=== PATIENT | male | born 1970 | race Caucasian/White ===

== ENCOUNTER 2024-01-16 21:01 | Inpatient (IN) | payer MEDICAID, SELFPAY ==
[2024-01-16] VITALS (8 sets, daily range): BP systolic 103–161; BP diastolic 59–104; PULSE 69–83; RESP 13–28; TEMP 36.4–37.1; O2SAT 93–100; BMI 23.0
--- NOTE | 2024-01-16 | IR_ITS ---
APPROVED REPORT Patient Location: Emergent Export Documents Clerk: TERI Madison RT (R) PROCEDURES Left heart catheterization Left ventriculogram Selective coronary angiogram Drug-eluting stent deployment to the mid circumflex artery INDICATION Acute inferolateral ST elevation myocardial infarction, Coronary artery disease Informed consent was obtained prior to the procedure. COMPLICATIONS None Estimated Blood Loss: Less than 10 mls TECHNIQUE One percent lidocaine used to anesthetize the right anterior aspect of the wrist. The right radial artery was accessed via the Seldinger technique. A 6 [place] Islander sheath was placed in the right radial artery. 2.5 mg of Verapamil, 800 mcg of nitroglycerin, 1mg Lidocaine and 5000 U Heparin were given through the arterial sheath. The papa catheter was also used to perform left heart catheterization, left ventriculogram and selective coronary angiogram. At the end of the diagnostic angiogram the guide catheter was left in the left main artery and a Choice PT extra-support wire was placed in the circumflex artery. A 3 mm x 22 mm [place] frontier stent was deployed at 14 bonilla reducing the critical stenosis to 0%. SIGIFREDO II flow was present at the beginning of the procedure with SIGIFREDO-3 flow at the end the procedure. Within the procedure the apparatus was removed the sheath was removed and hemostasis was achieved using TR banding patient was transferred to the postop putting in stable condition ANGIOGRAPHIC RESULTS The left main artery Normal The left anterior descending artery Proximally normal with mid vessel hazy tandem 30 to 40% stenoses The circumflex artery Nondominant and has a mid vessel concentric greater than 90% stenosis supplying 2 distal moderate-sized obtuse marginal arteries. The right coronary artery Is a dominant vessel and has proximal 30% with a mid vessel concentric 40% with additional 30% distal stenoses The SUAREZ ventriculogram reveals Normal 60% The left ventricular end-diastolic pressure [address] elevation myocardial infarction involving the circumflex artery Successful stent to the mid circumflex artery critical disease reduced to 0% with 1 drug-eluting stent Persistent moderate mid LAD disease as well as moderate disease in the proximal and mid dominant right coronary Normal ejection fraction Mildly elevated LVEDP PLAN 1. Brilinta 90 twice daily plus aspirin 81 mg daily 2. LDL of 55 to be achieved with high intensity statin 3. Avoidance of tobacco products 4. Echocardiogram in the morning 5. Recommend 48 hours of telemetry monitoring 6. Cardiac rehabilitation 7. MARLENE inhibitor's and beta-blockers once hemodynamically tolerable 8. Aggressive risk factor modification Electronically signed by : Kirby Freitas MD 01/16/2024 22:56:55
--- NOTE | 2024-01-16 21:00 | ECG_ITS ---
APPROVED REPORT Exam: Resting ECG HR:74 bpm ECG Measurements Heart Rate 74 AXES MO 152 P 71 QRSd 101 QRS 93 QT 369 T 43 QTc 396 Conclusion SINUS RHYTHM POSSIBLE LEFT ATRIAL ENLARGEMENT [-0.1mV P-WAVE IN V1/V2] BORDERLINE RIGHT AXIS DEVIATION [QRS AXIS > 90] NONSPECIFIC T-WAVE ABNORMALITY BORDERLINE ECG UNCONFIRMED REPORT Electronically signed by : Lit Ahuja MD 01/17/2024 20:00:37
--- NOTE | 2024-01-16 21:07 | XR_ITS ---
PROCEDURE INFORMATION: Exam: XR Chest Exam date and time: 01/16/2024 9:52 PM Age: 53 years old Clinical indication: Pain; Chest pressure; Additional info: R cp. Stemi alert TECHNIQUE: Imaging protocol: Radiologic exam of the chest. Views: 1 view. COMPARISON: No relevant prior studies available. FINDINGS: Lungs: Scattered pulmonary granulomas. Pleural spaces: Unremarkable. No pleural effusion. No pneumothorax. Heart/Mediastinum: Unremarkable. No cardiomegaly. Bones/joints: Unremarkable. IMPRESSION: No acute findings.
--- NOTE | 2024-01-16 21:09 | HMH.EDCP ---
Discharge Plan Disposition Patient Disposition: Admitted Referrals Follow up/Referrals: Na Bryan MD [Staff Physician] - See instructions Clinical Impressions Clinical Impression: Chest pain, ST elevation myocardial infarction (STEMI) Discharge ED Provider: Jv Sears <DIVINE Byers - Last Filed: 01/16/24 21:12> General Chief Complaint: Chest Pain Stated Complaint: Chest Pain Time Seen by Provider: 01/16/24 21:06 Related Data Allergies Allergy/AdvReac Type Severity Reaction Status Date / Time No Known Allergies Allergy Verified 01/16/24 21:16 <Jv Sears MD - Last Filed: 01/16/24 22:07> History of Present Illness HPI narrative: Patient is a 53-year-old male with no pertinent past medical history, no PCP who presents emergency department for evaluation of chest pain. Patient was hiking earlier today, less than 1 mile. He has since developed a deep severe left-sided chest pain that is radiating through to his back with sweating. No other acute complaints at this time. [facility] <DIVINE Byers - Last Filed: 01/16/24 21:12> [facility] Disclaimer: The information contained in this section may have been updated after the patient was seen, as this information can be updated by other users. Social History Smoking Status: Current every day smoker alcohol intake: never current occupational status: other Travel in the last 8 weeks: None <Jv Sears MD - Last Filed: 01/16/24 22:07> ROS Obtained: Yes Systems reviewed as appropriate & no additional complaints except as documented <Jv Sears MD - Last Filed: 01/16/24 22:07> General General appearance: alert and in no apparent distress Head Head exam: atraumatic and normocephalic Eye Eye exam: Present PERRL ENT ENT exam: Present mucous membranes moist Neck Neck exam: Present normal inspection Chest Chest inspection: Present normal inspection and symmetric chest wall rise Respiratory Respiratory exam: Present normal lung sounds bilaterally; Absent respiratory distress Cardiovascular Cardiovascular exam: Present regular rate and normal rhythm Abdominal Exam Abdominal exam: Present soft; Absent tenderness Extremities Exam Extremities exam: Present normal inspection and other (2+ left radial pulse) Neurological Exam Neurological exam: Present alert Psychiatric Psychiatric exam: Present normal affect Skin Skin exam: Present warm and dry <Jv Sears MD - Last Filed: 01/16/24 22:07> HEART Score HEART Score assessment performed?: Yes History (anamnesis): Highly suspicious ECG: Significant ST-deviation Age: 45-65 years Risk factors: 1-2 risk factors Troponin: </= normal limit HEART Score: 6 <Jv Sears MD - Last Filed: 01/16/24 22:07> Critical Care Time Critical Care Time: Yes Attestation: On 01/16/24, the high probability of a clinically significant, sudden or life threatening deterioration of the following system(s) required my full and direct attention, intervention and personal management. The time I documented below is in addition to time spent performing reported procedures but includes the following listed in this critical care notation. Total Time Total Critical Care Time: 30 Medical Decision Making <DIVINE Byers - Last Filed: 01/16/24 21:12> Vital Signs Vital Signs: 01/16/24 21:02 01/16/24 21:02 01/16/24 21:24 Temperature 98.8 F Temperature Source Oral Pulse Rate 74 71 Pulse Rate [Left] 74 Respiratory Rate 28 H 16 Blood Pressure 161/99 H Blood Pressure [Right Arm] 160/104 H Blood Pressure Mean [Right Arm] 122 02 Sat by Pulse Oximetry 100 98 Oxygen Delivery Method Room Air Room Air Lab Data Labs: Lab Results 01/16/24 21:12: WBC 9.4, RBC 5.25, Hgb 16.4, Hct 51.0, MCV 97.1 H, MCH 31.3 H, MCHC 32.2, RDW 13.7, Plt Count 298, MPV 8.0, Neut % (Auto) 62.1, Lymph % (Auto) 31.8, [place] % (Auto) 4.2, Eos % (Auto) 1.6, Baso % (Auto) 0.3, Neut # (Auto) 5.8, Lymph # (Auto) 3.0, [place] # (Auto) 0.4, Eos # (Auto) 0.2, Baso # (Auto) 0.0, Sodium 139, Potassium 3.5, Chloride 105, Carbon Dioxide 34 H, Anion Gap 3.5 L, BUN 9, Creatinine 1.10, Estimated Creat Clear 75, Estimated GFR 71, Est GFR ( Amer) 85, Glucose 105 H, Calcium 8.9, Total Bilirubin 0.3, AST 34, ALT 31, Alkaline Phosphatase 89, Troponin I < 0.01, Total Protein 7.6, Albumin 4.3, Globulin 3.3 H, Albumin/Globulin Ratio 1.3 01/16/24 21:12 01/16/24 21:12 Response Orders (Tests/Meds): ED MEDICATIONS Generic Name Dose Route Start Last Admin Trade Name Freq PRN Reason Stop Dose Admin Nitroglycerin 0.4 mg 01/16/24 21:44 01/16/24 21:45 Nitroglycerin 0.4mg Sl Tablet SL 02/15/24 21:43 0.4 mg Q5MINP PRN Administration Chest Pain Discontinued Medications Generic Name Dose Route Start Last Admin Trade Name Freq PRN Reason Stop Dose Admin Aspirin 324 mg 01/16/24 21:23 01/16/24 21:36 Aspirin 81mg Chewable Tablet PO 01/16/24 21:24 324 mg ONCE ONE Administration Morphine Sulfate 4 mg 01/16/24 21:14 01/16/24 21:17 Morphine 4mg/Ml Syringe IV 01/16/24 21:15 4 mg ONCE ONE Administration Nitroglycerin 0.4 mg 01/16/24 21:14 01/16/24 21:17 Nitroglycerin 0.4mg Sl Tablet SL 01/16/24 21:15 0.4 mg ONCE ONE Administration Ondansetron HCl 4 mg 01/16/24 21:14 01/16/24 21:17 Ondansetron 4mg/2ml Vial IV 01/16/24 21:15 4 mg ONCE ONE Administration ORDERS Category Date Time Status CT angio chest - dissection Stat Cat Scan 01/16/24 21:07 Stop Req CXR --portable [XR chest portable] Stat Exams 01/16/24 21:07 Taken CBC w/Auto Diff [Complete Blood Count Auto Diff] Stat Lab 01/16/24 21:12 Completed CMP [Comprehensive Metabolic Panel] Stat Lab 01/16/24 21:12 Completed Trop I [Troponin I] Stat Lab 01/16/24 21:12 Completed Troponin I Q3H Lab 01/17/24 00:15 Ordered Troponin I Q3H Lab 01/17/24 03:15 Ordered <Jv Sears MD - Last Filed: 01/16/24 22:07> Dylan Inquiry Pt receiving controlled substance: No Vital Signs Vital Signs: 01/16/24 21:02 01/16/24 21:02 01/16/24 21:24 Temperature 98.8 F Temperature Source Oral Pulse Rate 74 71 Pulse Rate [Left] 74 Respiratory Rate 28 H 16 Blood Pressure 161/99 H Blood Pressure [Right Arm] 160/104 H Blood Pressure Mean [Right Arm] 122 02 Sat by Pulse Oximetry 100 98 Oxygen Delivery Method Room Air Room Air Lab Data Labs: Lab Results 01/16/24 21:12: WBC 9.4, RBC 5.25, Hgb 16.4, Hct 51.0, MCV 97.1 H, MCH 31.3 H, MCHC 32.2, RDW 13.7, Plt Count 298, MPV 8.0, Neut % (Auto) 62.1, Lymph % (Auto) 31.8, [place] % (Auto) 4.2, Eos % (Auto) 1.6, Baso % (Auto) 0.3, Neut # (Auto) 5.8, Lymph # (Auto) 3.0, [place] # (Auto) 0.4, Eos # (Auto) 0.2, Baso # (Auto) 0.0, Sodium 139, Potassium 3.5, Chloride 105, Carbon Dioxide 34 H, Anion Gap 3.5 L, BUN 9, Creatinine 1.10, Estimated Creat Clear 75, Estimated GFR 71, Est GFR ( Amer) 85, Glucose 105 H, Calcium 8.9, Total Bilirubin 0.3, AST 34, ALT 31, Alkaline Phosphatase 89, Troponin I < 0.01, Total Protein 7.6, Albumin 4.3, Globulin 3.3 H, Albumin/Globulin Ratio 1.3 Response Orders (Tests/Meds): ED MEDICATIONS Generic Name Dose Route Start Last Admin Trade Name Freq PRN Reason Stop Dose Admin Nitroglycerin 0.4 mg 01/16/24 21:44 01/16/24 21:45 Nitroglycerin 0.4mg Sl Tablet SL 02/15/24 21:43 0.4 mg Q5MINP PRN Administration Chest Pain Discontinued Medications Generic Name Dose Route Start Last Admin Trade Name Freq PRN Reason Stop Dose Admin Aspirin 324 mg 01/16/24 21:23 01/16/24 21:36 Aspirin 81mg Chewable Tablet PO 01/16/24 21:24 324 mg ONCE ONE Administration Morphine Sulfate 4 mg 01/16/24 21:14 01/16/24 21:17 Morphine 4mg/Ml Syringe IV 01/16/24 21:15 4 mg ONCE ONE Administration Nitroglycerin 0.4 mg 01/16/24 21:14 01/16/24 21:17 Nitroglycerin 0.4mg Sl Tablet SL 01/16/24 21:15 0.4 mg ONCE ONE Administration Ondansetron HCl 4 mg 01/16/24 21:14 01/16/24 21:17 Ondansetron 4mg/2ml Vial IV 01/16/24 21:15 4 mg ONCE ONE Administration ORDERS Category Date Time Status CT angio chest - dissection Stat Cat Scan 01/16/24 21:07 Stop Req CXR --portable [XR chest portable] Stat Exams 01/16/24 21:07 Taken CBC w/Auto Diff [Complete Blood Count Auto Diff] Stat Lab 01/16/24 21:12 Completed CMP [Comprehensive Metabolic Panel] Stat Lab 01/16/24 21:12 Completed Trop I [Troponin I] Stat Lab 01/16/24 21:12 Completed Troponin I Q3H Lab 01/17/24 00:15 Ordered Troponin I Q3H Lab 01/17/24 03:15 Ordered ECG Data Tracing #1: ECG Narrative: Independently interpreted by me, rate of 74, rhythm is regular, no ST elevation in anatomical contiguous leads, nonspecific changes in the inferior leads. QTc 396. Tracing #2: ECG Narrative: Independently interpreted by me, rate of 75, rhythm is regular, ST elevation in the inferior leads with dynamic T wave inversions in V3 and V4 concerning for inferior SD. QTc 397. MDM Narrative Medical Decision Narrative: In summary patient is a 53-year-old male past medical history described above presents emergency department for evaluation of chest pain. Patient is hemodynamically stable nontoxic-appearing upon arrival, afebrile. Differential diagnosis includes ACS, aortic dissection, pulmonary embolism, among others. Workup will be conducted with hematologic labs, chest x-ray, EKG, troponin, CTA chest. Initial interventions include morphine, nitroglycerin, aspirin. Initial workup reviewed by me, hematologic labs have no leukocytosis, no anemia, no GASTON or critical electrolyte abnormalities. Patient became diaphoretic, crushing left-sided chest pain, repeat EKG shows dynamic ST elevation inferior leads with T wave inversions in the lateral leads concerning for evolving myocardial infarction. The case was immediately discussed with Dr. Freitas who agrees and recommends emergent heart catheterization. Nitroglycerin administered given the patient is not hypotensive although inferior ischemia. CTA will be deferred and patient will be transported to [facility] for heart catheterization at this time.
[2024-01-16] MEDS: MORPHINE 4MG/ML SYRINGE 4 MG IV (21:17)
[2024-01-16] MEDS: ONDANSETRON 4MG/2ML VIAL 4 MG IV (21:17)
[2024-01-16] MEDS: NITROGLYCERIN 0.4MG SL TABLET 0.400000000000000022 MG SL ×2 (21:17→21:45)
[2024-01-16 21:26] LABS: Basophils % 0.3 % (0.1-2.0); Eosinophils # 0.2 K/mm3 (0.0-0.4); Eosinophils % 1.6 % (0.1-12.0); Hemoglobin 16.4 g/dL (14.1-18.0); Lymphocytes % 31.8 % (10-50); Mean Corpuscular HGB Conc 32.2 g/dL (31.8-35.4); Mean Corpuscular Hemoglobin 31.3 pg (27.0-31.2); Mean Corpuscular Volume 97.1 fl (80-94); Monocytes # 0.4 K/mm3 (0.1-1.0); Monocytes % 4.2 % (1.7-9.3); Neutrophils # 5.8 K/mm3 (1.8-7.8); Neutrophils % 62.1 % (37.0-80.0); Platelet Count 298 K/mm3 (142-424); Red Blood Count 5.25 M/mm3 (4.60-6.20); Red Cell Distribution Width 13.7 % (11.5-17.5); White Blood Count 9.4 K/mm3 (4.8-10.8)
[2024-01-16 21:35] LABS: Chloride 105 mmol/L (98-107); Potassium 3.5 mmoL/L (3.5-5.1); Sodium 139 mmol/L (136-145)
[2024-01-16] MEDS: ASPIRIN 81MG CHEWABLE TABLET 324 MG PO (21:36)
[2024-01-16 21:38] LABS: Alanine Aminotransferase 31 U/L (12-78); Albumin Level 4.3 g/dl (3.5-5.0); Albumin/Globulin Ratio 1.3 (1.1-1.8); Alkaline Phosphatase 89 U/L (38-126); Anion Gap 3.5 mEq/L (5-15); Aspartate Amino Transferase 34 U/L (17-59); Bilirubin,Total 0.3 mg/dl (0.2-1.3); Blood Urea Nitrogen 9 mg/dl (9-20); Carbon Dioxide 34 mmol/L (22.0-30.0); Creatinine Clearance Estimated 75 mL/min (50-200); Estimated Glomerular Filt Rate 71 ml/min (>60); GFR (African American) 85 ML/MIN (>60); Globulin 3.3 g/dL (1.3-3.2); Total Protein,Serum 7.6 g/dl (6.3-8.2)
[2024-01-16 21:39] LABS: Calcium 8.9 mg/dl (8.4-10.2); Glucose 105 mg/dl (74-100)
--- NOTE | 2024-01-16 21:45 | ECG_ITS ---
APPROVED REPORT Exam: Resting ECG HR:75 bpm ECG Measurements Heart Rate 75 AXES MO 147 P 63 QRSd 95 QRS 97 QT 368 T 71 QTc 397 Conclusion SINUS RHYTHM WITH MARKED SINUS ARRHYTHMIA BORDERLINE RIGHT AXIS DEVIATION [QRS AXIS > 90] NONSPECIFIC T-WAVE ABNORMALITY BORDERLINE ECG UNCONFIRMED REPORT Electronically signed by : Lit Ahuja MD 01/17/2024 20:00:28
--- NOTE | 2024-01-16 21:47 | PC.NURSE ---
patient had a new onset of pain so a repeat EKG was obtained and Dr. Freitas was paged to extension [phone].
--- NOTE | 2024-01-16 21:58 | PC.NURSE ---
STEMI alert called @2150, and cath team called, per [facility]. Pt has bilat 18G IVs, on zolle monitor, shaved on wrists and groins, and put in a pt gown. IVF hanging at bedside.
--- NOTE | 2024-01-16 21:59 | PC.NURSE ---
Zoll has been placed on patient, second IV access obtained
[2024-01-16 22:02] LABS: Troponin I < 0.01 ng/ml (0.00-0.034)
--- NOTE | 2024-01-16 22:03 | PC.NURSE ---
Patient has been shaved in appropriate areas for laboratory inspector.
[2024-01-16] MEDS: HEPARIN SODIUM 5,000 UNIT/ML VIAL 6700 UNIT IV (22:15)
[2024-01-16] MEDS: TICAGRELOR 90MG TABLET 180 MG PO (22:15)
--- NOTE | 2024-01-16 22:18 | PC.NURSE ---
contacted dr richards via stemi phone to confirm medications. verbal order received for brillinta 180 mg and heparin bolus 100units/kg. Informed primary nurse and ER MD and added order to chart.
--- NOTE | 2024-01-16 22:24 | PC.NURSE ---
Cricket from [facility] called and confirmed patients name and , also stated that they needed 5 mins then he could be transported to the [facility]
[2024-01-16] MEDS: 0.9 % SODIUM CHLORIDE 500 ML 25 ML IV (22:56)
[2024-01-16] MEDS: LIDOCAINE 1% 10ML MDV 20 ML IJ (22:56)
[2024-01-16] MEDS: HEPARIN 1,000 UNITS/500ML NS (CATH LAB) 3000 UNIT IV (22:56)
[2024-01-16] MEDS: HEPARIN 1,000 UNITS/ML 10ML VIAL (CATH LAB) 10000 UNIT IV (22:56)
[2024-01-16] MEDS: NITROGLYCERIN 800MCG/8ML SYR (CATH LAB) 800 MCG IA (22:57)
[2024-01-16] MEDS: diphenhydrAMINE 50MG/ML VIAL 50 MG IV (22:57)
[2024-01-16] MEDS: FENTANYL 100MCG/2ML VIAL 50 MCG IV (22:58)
[2024-01-16] MEDS: MIDAZOLAM HCL 1MG/1ML 5ML VIAL 1 MG IV (22:58)
[2024-01-16] MEDS: IOPAMIDOL-370 (76%);100ML BOTTLE 90 ML IV (23:16)
--- NOTE | 2024-01-16 23:16 | EXP.HP ---
History of Present Illness *Admission Date: 01/16/24 *Reason for visit:: CP *History of present illness: This is a 53-year-old male with apparently no past medical history, no PCP, heavy smoker 1-1/2 pack a day who presented to ED for evaluation of chest pain. Patient was hiking earlier today, less than 1 mile. He has since developed a deep severe left-sided chest pain that is radiating through to his back with sweating. STEMI alert was called. patient emergent taken to quality control lab technician. Patient seen and evaluated after procedure. Tolerated well no acute complications. No other acute complaints at this time. Admitted for management. [facility] Disclaimer: The information contained in this section may have been updated after the patient was seen, as this information can be updated by other users. Surgical History (Updated 01/17/24 @ 05:36 by Chapin Alegre APRN) History of appendectomy Family History (Updated 01/17/24 @ 00:11 by Sigrid Bryan RN) Family history of heart disease Family history of diabetes mellitus (DM) Family history of liver disease Social History (Updated 01/17/24 @ 00:08 by Sigrid Bryan RN) Smoking Status: Current every day smoker alcohol intake: never current occupational status: other Travel in the last 8 weeks: None Review of Systems Review of Systems Review of systems:: pertinent systems reviewed and negative unless documented below Meds Home Medications and Allergies Home Medications Medication Instructions Recorded Confirmed Type No Known Home Medications 01/16/24 01/16/24 History New Prescriptions to Start Prescriptions: Allergies Allergy/AdvReac Type Severity Reaction Status Date / Time No Known Allergies Allergy Verified 01/16/24 21:16 Exam Data for Last 24 hours Vital signs and Labs for Last 24 Hours: Temp Pulse Resp BP Pulse Ox O2 Del Method 98.2 F 80 18 134/60 98 Room Air 01/16/24 22:53 01/16/24 22:53 01/16/24 22:53 01/16/24 22:53 01/16/24 21:24 01/16/24 21:24 Laboratory Results - last 24 hr 01/16/24 21:12: WBC 9.4, RBC 5.25, Hgb 16.4, Hct 51.0, MCV 97.1 H, MCH 31.3 H, MCHC 32.2, RDW 13.7, Plt Count 298, MPV 8.0, Neut % (Auto) 62.1, Lymph % (Auto) 31.8, [place] % (Auto) 4.2, Eos % (Auto) 1.6, Baso % (Auto) 0.3, Neut # (Auto) 5.8, Lymph # (Auto) 3.0, [place] # (Auto) 0.4, Eos # (Auto) 0.2, Baso # (Auto) 0.0, Sodium 139, Potassium 3.5, Chloride 105, Carbon Dioxide 34 H, Anion Gap 3.5 L, BUN 9, Creatinine 1.10, Estimated Creat Clear 75, Estimated GFR 71, Est GFR ( Amer) 85, Glucose 105 H, Calcium 8.9, Total Bilirubin 0.3, AST 34, ALT 31, Alkaline Phosphatase 89, Troponin I < 0.01, Total Protein 7.6, Albumin 4.3, Globulin 3.3 H, Albumin/Globulin Ratio 1.3 I & O for Last 24 hours: Intake & Output 01/13/24 01/14/24 01/15/24 01/16/24 23:59 23:59 23:59 23:59 Weight 66.678 kg Constitutional Constitutional: mild distress, cooperative and somnolent *Routine HEENT Exam Head: Present normocephalic and atraumatic Eye: Present EOMI, PERRL and normal accommodation ENT: Present mucous membranes moist *Routine Neck Exam Neck: Present supple, full ROM and trachea midline *Routine Respiratory Exam Respiratory: Present CTA bilaterally, normal respiratory effort and symmetric chest movement; Absent respiratory distress *Routine Cardiovascular Exam Cardiovascular: Present RRR, Normal S1 and Normal S2 *Routine Abdominal Exam Abdominal: Present soft and normoactive bowel sounds; Absent tenderness *Routine Rectal Exam Rectal:: deferred *Routine Genitalia Exam Genitalia:: deferred *Routine Extremities Exam Extremities: Present full ROM, pulses intact and vascular access (dry clean intact ); Absent cyanosis, clubbing or edema *Routine Skin Exam Skin: Present dry and warm; Absent cyanosis or rash *Routine Neurological Exam Neurological: Present alert, oriented X3, normal reflexes and normal speech Routine Psychiatric Exam Psychiatric: Present cooperative, good insight and good judgment H&P: Result Imaging and Cardiology EKG: Status: image reviewed by me and Preliminary report Chest x-ray: Status: image reviewed by me, Preliminary report and final report Assessment and Plan *Assessment and plan (1) Chest pain: Status: Acute Qualifiers: Chest pain type: chest pain due to myocardial ischemia Ischemic chest pain type: unspecified angina pectoris type Qualified Code(s): I25.9 - Chronic ischemic heart disease, unspecified Category: Medical Code(s): R07.9 - Chest pain, unspecified (2) ST elevation myocardial infarction (STEMI): Status: Acute Qualifiers: Involved coronary artery: left circumflex coronary artery Qualified Code(s): I21.21 - ST elevation (STEMI) myocardial infarction involving left circumflex coronary artery Category: Medical Code(s): I21.3 - ST elevation (STEMI) myocardial infarction of unspecified site (3) S/P coronary artery stent placement: Status: Acute Category: Surgical Code(s): Z95.5 - Presence of coronary angioplasty implant and graft (4) CAD (coronary artery disease): Status: Acute Qualifiers: Associated angina: unspecified whether angina present Coronary Disease-Associated Artery/Lesion type: [place] artery [place] vs. transplanted heart: [place] heart Qualified Code(s): I25.10 - Atherosclerotic heart disease of [place] coronary artery without angina pectoris Category: Medical Code(s): I25.10 - Atherosclerotic heart disease of [place] coronary artery without angina pectoris (5) Heavy smoker: Status: Acute Category: Social Hx Code(s): F17.200 - Nicotine dependence, unspecified, uncomplicated Plan 53-year-old male with apparently no past medical history, no PCP, heavy smoker 1-1/2 pack a day who presented to ED for evaluation of chest pain. Patient was hiking earlier today, less than 1 mile. He has since developed a deep severe left-sided chest pain that is radiating through to his back with sweating. EKG showed ST elevation. STEMI alert was called. taken to laboratory specialist. Successful stent to the mid circumflex artery critical disease reduced to 0% with 1 drug-eluting stent. See report for more details. Case discussed with ED and cardiology. Admitted post procedure. Plan as follow: -Chest pain secondary to STEMI due to complete occlusion to the mid circumflex artery S/p stent placement. mild CAD of other [place] coronary artery: Admit patient for continuous cardiac telemetry Cardiac consult monitor for CP. monitor for site bleeding, hematoma. pain management repeat lab in the morning Obtain lipid panel, A1c and Vit D to access and complete cardiac risk assessment. ECHO ordered started on statin, ASA and brillinta per cardiology Will introduce betablocker and MARLENE inhibitor heavy smoker: On nicotine patch. Aggressive lifestyles changes encouraged heparinized at laboratory specialist. On protonix. Full code Rounded on patient after nurse practitioner. Personally examined and interviewed patient. Agree with exam findings and care plan as documented.
[2024-01-16 23:17] LABS: CATHL Activated Clotting Time 212 SEC (74-125)
--- NOTE | 2024-01-16 23:38 | PC.NURSE ---
@ [phone] REPORT CALLED FROM INGREDIENT SPECIALIST; CELESTINO BENTLEY
--- NOTE | 2024-01-16 23:42 | PC.NURSE ---
pt arrived to floor at this time
[2024-01-17] VITALS (17 sets, daily range): BP systolic 107–155; BP diastolic 53–87; PULSE 51–71; RESP 10–24; TEMP 36.3–37.3; O2SAT 93–99; BMI 23.8
[2024-01-17 00:39] LABS: Basophils % 0.2 % (0.1-2.0); Eosinophils # 0.2 K/mm3 (0.0-0.4); Eosinophils % 1.5 % (0.1-12.0); Hematocrit 42.4 % (42.0-52.0); Hemoglobin 14.2 g/dL (14.1-18.0); Lymphocytes # 3.8 K/mm3 (0.7-4.5); Lymphocytes % 31.3 % (10-50); Mean Corpuscular HGB Conc 33.5 g/dL (31.8-35.4); Mean Corpuscular Hemoglobin 31.6 pg (27.0-31.2); Mean Corpuscular Volume 94.3 fl (80-94); Mean Platelet Volume 8.1 fl (7.4-10.4); Monocytes # 0.4 K/mm3 (0.1-1.0); Monocytes % 3.7 % (1.7-9.3); Neutrophils # 7.6 K/mm3 (1.8-7.8); Neutrophils % 63.3 % (37.0-80.0); Platelet Count 239 K/mm3 (142-424); Red Cell Distribution Width 13.6 % (11.5-17.5); White Blood Count 12.1 K/mm3 (4.8-10.8)
[2024-01-17 00:49] LABS: Anion Gap 6.9 mEq/L (5-15); Blood Urea Nitrogen 9 mg/dl (9-20); Calcium 8.2 mg/dl (8.4-10.2); Carbon Dioxide 30 mmol/L (22.0-30.0); Chloride 106 mmol/L (98-107); Creatinine Clearance Estimated 82 mL/min (50-200); Estimated Glomerular Filt Rate 79 ml/min (>60); GFR (African American) 95 ML/MIN (>60); Glucose 97 mg/dl (74-100); Potassium 3.9 mmoL/L (3.5-5.1); Sodium 139 mmol/L (136-145)
[2024-01-17 01:02] LABS: Troponin I 0.08 ng/ml (0.00-0.034)
[2024-01-17] MEDS: ACETAMINOPHEN 325MG TAB 650 MG PO ×2 (02:33→09:07)
[2024-01-17 03:47] LABS: Basophils % 0.4 % (0.1-2.0); Eosinophils # 0.2 K/mm3 (0.0-0.4); Eosinophils % 1.8 % (0.1-12.0); Hematocrit 45.9 % (42.0-52.0); Hemoglobin 14.9 g/dL (14.1-18.0); Lymphocytes # 4.2 K/mm3 (0.7-4.5); Lymphocytes % 37.4 % (10-50); Mean Corpuscular HGB Conc 32.4 g/dL (31.8-35.4); Mean Corpuscular Hemoglobin 31.3 pg (27.0-31.2); Mean Corpuscular Volume 96.6 fl (80-94); Mean Platelet Volume 7.7 fl (7.4-10.4); Monocytes # 0.5 K/mm3 (0.1-1.0); Monocytes % 4.2 % (1.7-9.3); Neutrophils # 6.4 K/mm3 (1.8-7.8); Neutrophils % 56.2 % (37.0-80.0); Platelet Count 246 K/mm3 (142-424); Red Blood Count 4.75 M/mm3 (4.60-6.20); Red Cell Distribution Width 13.8 % (11.5-17.5); White Blood Count 11.3 K/mm3 (4.8-10.8)
[2024-01-17 03:54] LABS: Chloride 107 mmol/L (98-107); Potassium 4.1 mmoL/L (3.5-5.1); Sodium 138 mmol/L (136-145)
[2024-01-17 03:57] LABS: Alanine Aminotransferase 28 U/L (12-78); Albumin Level 3.7 g/dl (3.5-5.0); Albumin/Globulin Ratio 1.4 (1.1-1.8); Alkaline Phosphatase 80 U/L (38-126); Anion Gap 4.1 mEq/L (5-15); Aspartate Amino Transferase 38 U/L (17-59); Bilirubin,Total 0.4 mg/dl (0.2-1.3); Blood Urea Nitrogen 8 mg/dl (9-20); Calcium 8.5 mg/dl (8.4-10.2); Carbon Dioxide 31 mmol/L (22.0-30.0); Creatinine Clearance Estimated 92 mL/min (50-200); Estimated Glomerular Filt Rate 89 ml/min (>60); GFR (African American) 108 ML/MIN (>60); Globulin 2.7 g/dL (1.3-3.2); Glucose 88 mg/dl (74-100); Total Protein,Serum 6.4 g/dl (6.3-8.2)
[2024-01-17 03:58] LABS: Chol/HDL Ratio 6.4 (1-3.5); Cholesterol 193 mg/dl (140-200); HDL Cholesterol 30 mg/dl (40-60); Magnesium 1.9 mg/dl (1.6-2.3); Triglycerides 159 mg/dl (30-150); VLDL Cholesterol 32 mg/dL (0-40)
[2024-01-17 04:10] LABS: Troponin I 0.13 ng/ml (0.00-0.034)
[2024-01-17 04:22] LABS: Hemoglobin A1C 5.3 % (4.0-6.0)
[2024-01-17 04:36] LABS: 25-OH Vitamin D, Total 17.5 ng/mL (30-100)
--- NOTE | 2024-01-17 05:14 | PC.NURSE ---
TR BAND 16ML @0200 -2ML (14) @0215 -2ML (12) @0230 -2ML (10) @0245 -2ML (8) @0300 -2ML (6) @0315 -2ML (4) @0330 -2ML (2) @0345 -2ML (0) TR BAND OFF @ 0345, TEGADERM AND 4X4 DRESSING APPLIED, PT EDUCATED ON HOW TO CARE FOR WRIST AND PT VERBALIZED UNDERSTANDING.
--- NOTE | 2024-01-17 07:46 | HMH.PHAINT1 ---
Pharmacy Intervention Comments: Verified patient is taking no medications at home by speaking to him at bedside.
--- NOTE | 2024-01-17 08:39 | CA_ITS ---
APPROVED REPORT EXAM: Comprehensive 2D, Doppler, and color-flow Echocardiogram Sex Crimes Detective: María Lehman CRT Ht: 5 ft 6 in Wt: 152lbs BSA: 1.78 BP: 129/78 mmHg Indications: Chest Pain, CAD, Hyperlipidemia, smoker, stemi, stent 01/17/24 2D Dimensions LA Volume 34.00 mL LA Volume Index 18.70 mL/m2 (M/F) 16-34 M-Mode Dimensions RVDd 2.38 cm (0.9-2.6) LA Diam 3.34 cm (1.9-4.0) LVDd 4.92 cm (3.5-5.7) LVDs 3.17 cm (3.5-5.7) IVSd 1.13 cm (0.6-1.1) PWd 0.94 cm (0.6-1.1) EF (Teich) 64.90% FS 35.60% EDV (Teich) 113.90 mL TAPSE 2.42 (<1.7) ESV (Teich) 40.00 mL LV Diastology E Decel Time 320 (160-240 msec) E/A Ratio 1.21 MED A' 8.40 cm/s LAT A' 8.60 cm/s Aortic Valve AI PHT 790.00 ms AO Peak GR. 10.80 mmHg Mitral Valve MV E Max Boy. 124.0 (40-130 cm/s) MV A Velocity 102.0 (40-130 cm/s) E/A Ratio 1.21 MV PHT 94.0 ms Pulmonary Valve PV Peak Velocity 86.0 (50-150 cm/s) Tricuspid Valve TR P. Velocity 228.00 cm/s RAP Estimate 10.00 mmHg RVSP 30.80 mmHg Left Ventricle The left ventricle is normal size. The left ventricular systolic function is normal. The left ventricular ejection fraction is within the normal range. There is increased LV wall thickness. There is normal LV segmental wall motion. Diastolic function is indeterminate. LVEF is 65%. Right Ventricle The right ventricle is normal size. The right ventricular systolic function is normal. Atria The left atrium size is normal. The right atrium size is normal. There is no Doppler evidence of interatrial shunt. Aortic Valve The aortic valve is mildly thickened. There is no aortic valvular stenosis. Mild aortic regurgitation. Mitral Valve The mitral valve leaflets are mildly thickened. No evidence of mitral valve stenosis. Moderate mitral regurgitation. Tricuspid Valve The tricuspid valve leaflets are thin and pliable. Trace tricuspid regurgitation. There is insufficient TR jet to estimate RVSP. Pulmonic Valve The pulmonary valve is normal in structure. Trace pulmonic regurgitation. Great Vessels The aortic root is normal in size. The ascending aorta is normal in size. IVC is normal in size and collapses >50% with inspiration. Pericardium There is no pericardial effusion. Other Information Study Quality: Fair Conclusion Normal biventricular systolic function. Mild AI. Moderate MR. Electronically signed by : Andie Patricio MD 01/18/2024 22:47:27
--- NOTE | 2024-01-17 08:46 | P.CONCA_ITS ---
History of Present Illness History of Present Illness Consult date: 01/17/24 Requesting physician: Nikolas Delgado Consult reason: chest pain Chief complaint: STEMI Additional Medical History:: 1. Tobacco abuse, greater than 30 years, 1.5 packs/day 2. Strong family history of coronary artery disease in his father with history of several stents History of present illness: 53-year-old white male in his normal state of health until yesterday at which time he developed recurrent left shoulder and left arm/elbow discomfort with associated severe diaphoresis. Patient came to the ER for evaluation was noted to have an ST elevation [place] and was taken to the cardiac Client Service Associate with subsequent stent placement to his circumflex artery. Persistent moderate mid LAD disease and RCA disease to be treated medically at this time. No complaints of chest pain this morning. He does have some discomfort or sensitivity of the right forearm/radial artery area. Peak troponin 0.13 and trending down now. LDL 120 and HDL 30 with cholesterol 193 and triglycerides 159 this admission. EKGs in the ER shows sinus rhythm initially with ST segment slight depression in the inferior leads with follow-up EKG less than an hour later showing ST elevation in the inferior leads. [facility] Disclaimer: The information contained in this section may have been updated after the patient was seen, as this information can be updated by other users. Surgical History (Updated 01/17/24 @ 05:36 by Chapin Alegre APRN) History of appendectomy Family History (Updated 01/17/24 @ 00:11 by Sigrid Bryan RN) Family history of heart disease Family history of diabetes mellitus (DM) Family history of liver disease Social History (Updated 01/17/24 @ 00:08 by Sigrid Bryan RN) Smoking Status: Current every day smoker alcohol intake: never current occupational status: other Travel in the last 8 weeks: None Review of Systems Review of Systems Review of systems:: pertinent systems reviewed and negative unless documented below *Cardiovascular Cardiovascular: Reports chest pain, Reports diaphoresis and Denies dyspnea *Respiratory Respiratory: Denies dyspnea Exam Data for Last 24 hours Vital signs and Labs for Last 24 Hours: Temp Pulse Resp BP Pulse Ox O2 Del Method 97.3 F L 54 L 18 129/78 98 Room Air 01/17/24 04:15 01/17/24 07:43 01/17/24 07:43 01/17/24 07:43 01/17/24 07:43 01/17/24 07:43 Laboratory Results - last 24 hr 01/16/24 21:12: WBC 9.4, RBC 5.25, Hgb 16.4 D, Hct 51.0, MCV 97.1 H, MCH 31.3 H , MCHC 32.2, RDW 13.7, Plt Count 298, MPV 8.0, Neut % (Auto) 62.1, Lymph % (Auto) 31.8, [place] % (Auto) 4.2, Eos % (Auto) 1.6, Baso % (Auto) 0.3, Neut # (Auto) 5.8, Lymph # (Auto) 3.0, [place] # (Auto) 0.4, Eos # (Auto) 0.2, Baso # (Auto) 0.0, Sodium 139, Potassium 3.5, Chloride 105, Carbon Dioxide 34 H, Anion Gap 3.5 L, BUN 9, Creatinine 1.10, Estimated Creat Clear 75, Estimated GFR 71, Est GFR ( Amer) 85, Glucose 105 H, Calcium 8.9, Total Bilirubin 0.3, AST 34, ALT 31, Alkaline Phosphatase 89, Troponin I < 0.01, Total Protein 7.6, Albumin 4.3, Globulin 3.3 H, Albumin/Globulin Ratio 1.3 01/16/24 23:38: Activated Clotting Time 212 H* 01/17/24 03:35: WBC 11.3 H, RBC 4.75, Hgb 14.9, Hct 45.9, MCV 96.6 H, MCH 31.3 H , MCHC 32.4, RDW 13.8, Plt Count 246, MPV 7.7, Neut % (Auto) 56.2, Lymph % (Auto) 37.4, [place] % (Auto) 4.2, Eos % (Auto) 1.8, Baso % (Auto) 0.4, Neut # (Auto) 6.4, Lymph # (Auto) 4.2, [place] # (Auto) 0.5, Eos # (Auto) 0.2, Baso # (Auto) 0.0, Sodium 138, Potassium 4.1, Chloride 107, Carbon Dioxide 31 H, Anion Gap 4.1 L, BUN 8 L, Creatinine 0.90, Estimated Creat Clear 92, Estimated GFR 89, Est GFR ( Amer) 108, Glucose 88, Hemoglobin A1c 5.3, Calcium 8.5, Magnesium 1.9, Total Bilirubin 0.4, AST 38, ALT 28, Alkaline Phosphatase 80, Troponin I 0.13 H, Total Protein 6.4, Albumin 3.7 D, Globulin 2.7, Albumin/Globulin Ratio 1.4, Triglycerides 159 H, Cholesterol 193, LDL Cholesterol Direct 120.40, VLDL Cholesterol 32, HDL Cholesterol 30 L, Cholesterol/HDL Ratio 6.4 H, 25-OH Vitamin D Total 17.5 L 01/17/24 : WBC 12.1 H, RBC 4.50 L, Hgb 14.2, Hct 42.4, MCV 94.3 H, MCH 31.6 H, MCHC 33.5, RDW 13.6, Plt Count 239, MPV 8.1, Neut % (Auto) 63.3, Lymph % (Auto) 31.3, [place] % (Auto) 3.7, Eos % (Auto) 1.5, Baso % (Auto) 0.2, Neut # (Auto) 7.6, Lymph # (Auto) 3.8, [place] # (Auto) 0.4, Eos # (Auto) 0.2, Baso # (Auto) 0.0, Sodium 139, Potassium 3.9, Chloride 106, Carbon Dioxide 30, Anion Gap 6.9, BUN 9, Creatinine 1.00, Estimated Creat Clear 82, Estimated GFR 79, Est GFR ( Amer) 95, Glucose 97, Calcium 8.2 L, Troponin I 0.08 H I & O for Last 24 hours: Intake & Output 01/14/24 01/15/24 01/16/24 01/17/24 11:59 11:59 11:59 11:59 Intake Total 120 / 120 Output Total 0 / 0 Balance 120 / 120 Weight 152 lb 1 oz Constitutional Constitutional: no acute distress *Routine Respiratory Exam Respiratory: Present CTA bilaterally *Routine Cardiovascular Exam Cardiovascular: Present RRR; Absent murmur, gallop or rubs *Routine Extremities Exam Extremities: Absent edema *Routine Neurological Exam Neurological: Present alert, oriented X3 and CN II-XII intact Meds Home Medications and Allergies Home Medications Medication Instructions Recorded Confirmed Type No Known Home Medications 01/16/24 01/16/24 History New Prescriptions to Start Prescriptions: Allergies Allergy/AdvReac Type Severity Reaction Status Date / Time No Known Allergies Allergy Verified 01/16/24 21:16 Assessment and Plan *Assessment and plan (1) ST elevation myocardial infarction (STEMI): Status: Acute Qualifiers: Involved coronary artery: left circumflex coronary artery Qualified Code(s): I21.21 - ST elevation (STEMI) myocardial infarction involving left circumflex coronary artery Category: Medical Code(s): I21.3 - ST elevation (STEMI) myocardial infarction of unspecified site (2) CAD (coronary artery disease): Status: Acute Qualifiers: Associated angina: unspecified whether angina present Coronary Disease- Associated Artery/Lesion type: [place] artery [place] vs. transplanted heart: [place] heart Qualified Code(s): I25.10 - Atherosclerotic heart disease of [place] coronary artery without angina pectoris Category: Medical Code(s): I25.10 - Atherosclerotic heart disease of [place] coronary artery without angina pectoris (3) Heavy smoker: Status: Acute Category: Social Hx Code(s): F17.200 - Nicotine dependence, unspecified, uncomplicated (4) S/P coronary artery stent placement: Status: Acute Category: Surgical Code(s): Z95.5 - Presence of coronary angioplasty implant and graft (5) Hyperlipidemia: Status: Acute Qualifiers: Hyperlipidemia type: mixed hyperlipidemia Qualified Code(s): E78.2 - Mixed hyperlipidemia Category: Medical Code(s): E78.5 - Hyperlipidemia, unspecified Plan 1. STEMI -TOSHIA to circumflex, 01/16/2024 -Moderate LAD and RCA disease relegated to medical therapy -GDMT started with MARLENE and beta-[place] along with statin therapy and DAPT (aspirin/Brilinta) -Echo today -Continue to monitor for 48 hours 2. Tobacco use -Nicotine patch with recommendation for smoking cessation 3. Dyslipidemia with LDL 120 and HDL 30 -Start statin therapy with Lipitor or Crestor -LDL goal less than 55 4. Family history of coronary artery disease in his father Further recommendations to follow pending above results
[2024-01-17] MEDS: LISINOPRIL 2.5MG TABLET 2.5 MG PO (09:07)
[2024-01-17] MEDS: ASPIRIN EC 81MG TABLET 81 MG PO (09:08)
[2024-01-17] MEDS: TICAGRELOR 90MG TABLET 90 MG PO ×2 (09:08→20:30)
[2024-01-17] MEDS: ERGOCALCIFEROL 50,000 UNITS (1.25MG) CAPSULE 50000 UNIT PO (09:08)
--- NOTE | 2024-01-17 09:16 | PC.NURSE ---
pt requesting to leave the floor to go outside and smoke. pt instructed he is unable to leave the floor as a patient. pt has nicotine patch in place. pt denies any other needs at this time.
--- NOTE | 2024-01-17 13:32 | PC.NURSE ---
report given to Michelle Harris RN
--- NOTE | 2024-01-17 15:27 | PC.NURSE ---
Addendum entered by Ana M Harris RN 01/17/24 15:59: pt wants to add SO to contact list carla gaston, significant other, notified medical records. Original Note: went to check on pt and was unable to open the door at first then heard someone step away form the door, when this nurse walks in pt had visitors in room and began fidgeting in bed. pts visitor asked for a blanket for the pt. gave pt a blanket and pts asked to take pts iv out stating well he dont need them . md aware, no needs at this time.
--- NOTE | 2024-01-17 19:34 | P.PN_ITS ---
Subjective *Date: 01/17/24 *Time: 19:41 Interval history: No chest pain, stable on room air. Complaining of pain at right radial insertion site. Requesting to go smoke, informed him that we are in a smoking facility. Nicotine patch placed. No nausea, vomiting, diarrhea. Otherwise appears well. Family at bedside on rounds Medical Exam Vital signs and Labs for Last 24 Hours: Vital Signs Temp Pulse Pulse Resp BP BP Pulse Ox 01/17/24 18:03 01/17/24 17:00 01/17/24 16:00 61 01/17/24 16:00 97.8 F 71 17 134/80 99 01/17/24 15:00 01/17/24 12:00 60 01/17/24 13:00 01/17/24 12:00 98.7 F 54 L 17 130/65 97 01/17/24 11:00 01/17/24 08:00 60 01/17/24 08:57 01/17/24 08:00 97.9 F 01/17/24 07:43 54 L 18 129/78 98 01/17/24 07:10 94 L 01/17/24 07:00 01/17/24 06:15 56 L 15 155/87 H 95 01/17/24 04:00 70 01/17/24 05:15 56 L 21 134/83 97 01/17/24 04:15 97.3 F L 56 L 24 122/76 99 01/17/24 03:15 58 L 14 145/80 H 97 01/17/24 02:15 55 L 10 L 118/74 96 01/17/24 00:00 60 01/17/24 01:45 51 L 16 115/74 95 01/17/24 01:15 52 L 15 110/68 93 L 01/17/24 00:45 58 L 16 110/53 L 93 L 01/17/24 00:15 56 L 16 107/57 L 98 01/17/24 00:00 66 14 108/67 L 95 01/16/24 23:45 97.6 F 70 13 110/69 94 L 01/17/24 00:00 01/17/24 01:00 01/17/24 05:00 01/17/24 04:00 01/17/24 03:00 01/16/24 23:15 83 18 115/81 95 01/16/24 23:10 98.1 F 75 18 103/59 L 93 L 01/16/24 23:05 98.1 F 71 18 110/61 95 01/16/24 23:00 98.1 F 69 18 105/59 L 95 01/16/24 23:00 98.1 F 72 69 18 110/61 95 01/16/24 22:53 98.2 F 80 18 134/60 01/16/24 21:24 71 16 161/99 H 98 01/16/24 21:02 74 01/16/24 21:02 98.8 F 74 28 H 160/104 H 100 O2 Del Method 01/17/24 18:03 Room Air 01/17/24 17:00 Room Air 01/17/24 16:00 01/17/24 16:00 Room Air 01/17/24 15:00 Room Air 01/17/24 12:00 01/17/24 13:00 Room Air 01/17/24 12:00 Room Air 01/17/24 11:00 Room Air 01/17/24 08:00 01/17/24 08:57 Room Air 01/17/24 08:00 01/17/24 07:43 Room Air 01/17/24 07:10 Room Air 01/17/24 07:00 Room Air 01/17/24 06:15 Room Air 01/17/24 04:00 01/17/24 05:15 Room Air 01/17/24 04:15 Room Air 01/17/24 03:15 Room Air 01/17/24 02:15 Room Air 01/17/24 00:00 01/17/24 01:45 Room Air 01/17/24 01:15 Room Air 01/17/24 00:45 Room Air 01/17/24 00:15 Room Air 01/17/24 00:00 Room Air 01/16/24 23:45 Room Air 01/17/24 00:00 Room Air 01/17/24 01:00 Room Air 01/17/24 05:00 Room Air 01/17/24 04:00 Room Air 01/17/24 03:00 Room Air 01/16/24 23:15 Room Air 01/16/24 23:10 Room Air 01/16/24 23:05 Room Air 01/16/24 23:00 Room Air 01/16/24 23:00 Room Air 01/16/24 22:53 01/16/24 21:24 Room Air 01/16/24 21:02 01/16/24 21:02 Room Air Intake and Output 01/17/24 01/17/24 01/17/24 07:59 15:59 23:59 Intake Total 120 / 810 690 / 810 Output Total 0 / 0 0 / 0 Balance 120 / 810 690 / 810 0 / 810 Intake: Intake, Oral Amount 120 / 810 690 / 810 Output: Output, Urine Amount 0 / 0 0 / 0 Other: Number of Voids 0 Number of Unmeasured Voids 1 Weight 68.974 kg Patient Weight 01/17/24 23:59 Weight 68.974 kg Laboratory Results - last 24 hr 01/16/24 21:12: WBC 9.4, RBC 5.25, Hgb 16.4 D, Hct 51.0, MCV 97.1 H, MCH 31.3 H , MCHC 32.2, RDW 13.7, Plt Count 298, MPV 8.0, Neut % (Auto) 62.1, Lymph % (Auto) 31.8, [place] % (Auto) 4.2, Eos % (Auto) 1.6, Baso % (Auto) 0.3, Neut # (Auto) 5.8, Lymph # (Auto) 3.0, [place] # (Auto) 0.4, Eos # (Auto) 0.2, Baso # (Auto) 0.0, Sodium 139, Potassium 3.5, Chloride 105, Carbon Dioxide 34 H, Anion Gap 3.5 L, BUN 9, Creatinine 1.10, Estimated Creat Clear 75, Estimated GFR 71, Est GFR ( Amer) 85, Glucose 105 H, Calcium 8.9, Total Bilirubin 0.3, AST 34, ALT 31, Alkaline Phosphatase 89, Troponin I < 0.01, Total Protein 7.6, Albumin 4.3, Globulin 3.3 H, Albumin/Globulin Ratio 1.3 01/16/24 23:38: Activated Clotting Time 212 H* 01/17/24 03:35: WBC 11.3 H, RBC 4.75, Hgb 14.9, Hct 45.9, MCV 96.6 H, MCH 31.3 H , MCHC 32.4, RDW 13.8, Plt Count 246, MPV 7.7, Neut % (Auto) 56.2, Lymph % (Auto) 37.4, [place] % (Auto) 4.2, Eos % (Auto) 1.8, Baso % (Auto) 0.4, Neut # (Auto) 6.4, Lymph # (Auto) 4.2, [place] # (Auto) 0.5, Eos # (Auto) 0.2, Baso # (Auto) 0.0, Sodium 138, Potassium 4.1, Chloride 107, Carbon Dioxide 31 H, Anion Gap 4.1 L, BUN 8 L, Creatinine 0.90, Estimated Creat Clear 92, Estimated GFR 89, Est GFR ( Amer) 108, Glucose 88, Hemoglobin A1c 5.3, Calcium 8.5, Magnesium 1.9, Total Bilirubin 0.4, AST 38, ALT 28, Alkaline Phosphatase 80, Troponin I 0.13 H, Total Protein 6.4, Albumin 3.7 D, Globulin 2.7, Albumin/Globulin Ratio 1.4, Triglycerides 159 H, Cholesterol 193, LDL Cholesterol Direct 120.40, VLDL Cholesterol 32, HDL Cholesterol 30 L, Cholesterol/HDL Ratio 6.4 H, 25-OH Vitamin D Total 17.5 L 01/17/24 : WBC 12.1 H, RBC 4.50 L, Hgb 14.2, Hct 42.4, MCV 94.3 H, MCH 31.6 H, MCHC 33.5, RDW 13.6, Plt Count 239, MPV 8.1, Neut % (Auto) 63.3, Lymph % (Auto) 31.3, [place] % (Auto) 3.7, Eos % (Auto) 1.5, Baso % (Auto) 0.2, Neut # (Auto) 7.6, Lymph # (Auto) 3.8, [place] # (Auto) 0.4, Eos # (Auto) 0.2, Baso # (Auto) 0.0, [place] um 139, Potassium 3.9, Chloride 106, Carbon Dioxide 30, Anion Gap 6.9, BUN 9, Creatinine 1.00, Estimated Creat Clear 82, Estimated GFR 79, Est GFR ( Amer) 95, Glucose 97, Calcium 8.2 L, Troponin I 0.08 H I & O for Labs for Last 24 Hours: Intake & Output 01/14/24 01/15/24 01/16/24 01/17/24 23:59 23:59 23:59 23:59 Intake Total 810 / 810 Output Total 0 / 0 Balance 810 / 810 Weight 66.678 kg 68.974 kg Constitutional: Present no acute distress Respiratory: Present normal respiratory effort Cardiac: Present Reg Rate and Rhythm GI: Present normal bowel sounds; Absent tenderness Extremities: Present normal inspection and full ROM Comment:: Right radial insertion site clean, dry, intact. Skin: Present intact; Absent erythema Neuro: Present Grossly Intact, alert, awake, oriented x 3 and moves all extremities Assessment and Plan *Assessment and plan (1) ST elevation myocardial infarction (STEMI): Status: Acute Qualifiers: Involved coronary artery: left circumflex coronary artery Qualified Code(s): I21.21 - ST elevation (STEMI) myocardial infarction involving left circumflex coronary artery Category: Medical Code(s): I21.3 - ST elevation (STEMI) myocardial infarction of unspecified site (2) Chest pain: Status: Acute Qualifiers: Chest pain type: chest pain due to myocardial ischemia Ischemic chest pain type: unspecified angina pectoris type Qualified Code(s): I25.9 - Chronic ischemic heart disease, unspecified Category: Medical Code(s): R07.9 - Chest pain, unspecified (3) S/P coronary artery stent placement: Status: Acute Category: Surgical Code(s): Z95.5 - Presence of coronary angioplasty implant and graft (4) CAD (coronary artery disease): Status: Acute Qualifiers: Coronary Disease-Associated Artery/Lesion type: [place] artery [place] vs. transplanted heart: [place] heart Associated angina: unspecified whether angina present Qualified Code(s): I25.10 - Atherosclerotic heart disease of [place] coronary artery without angina pectoris Category: Medical Code(s): I25.10 - Atherosclerotic heart disease of [place] coronary artery without angina pectoris (5) Heavy smoker: Status: Acute Category: Social Hx Code(s): F17.200 - Nicotine dependence, unspecified, uncomplicated Plan 53-year-old male with apparently no past medical history, no PCP, heavy smoker 1-1/2 pack a day who presented to ED for evaluation of chest pain. Patient was hiking earlier today, less than 1 mile. He has since developed a deep severe left-sided chest pain that is radiating through to his back with sweating. EKG showed ST elevation. STEMI alert was called. taken to [facility]. Successful stent to the mid circumflex artery critical disease reduced to 0% with 1 drug-eluting stent. See report for more details. Case discussed with ED and cardiology. Admitted post procedure. Doing well overnight. No events on telemetry. Continues to require monitoring. Plan as follows: -Chest pain secondary to STEMI due to complete occlusion to the mid circumflex artery S/p stent placement. mild CAD of other [place] coronary artery: Continues to require observation on telemetry for 48 hours post STEMI. Cardiology consulted, discussed case today, recommend continuing dual antiplatelet therapy, goal-directed therapy with MARLENE inhibitor. Will initiate beta-[place] if blood pressure and heart rate allow. Echocardiogram obtained, formal read pending to evaluate heart function and EF. Labs normal this morning. Repeat CBC, CMP, magnesium ordered for the morning. Vitamin D low at 17.5, will initiate supplement with 50,000 units weekly A1c normal at 5.3 1 drug-eluting stent to the circumflex, moderate LAD and RCA disease. Continue dual antiplatelet therapy with aspirin 81 mg daily and Brilinta 90 mg twice daily Hyperlipidemia: Goal LDL less than 55, Lipitor 40 mg nightly. heavy smoker: On nicotine patch. Aggressive lifestyles changes encouraged Protonix Cardiac diet Full code
[2024-01-17] MEDS: ATORVASTATIN 40MG TABLET 40 MG PO (20:30)
[2024-01-17] MEDS: SODIUM CHLORIDE 0.9% 10ML VIAL 10 ML IV (20:30)
[2024-01-17] MEDS: PANTOPRAZOLE 40MG VIAL 40 MG IV (20:30)
[2024-01-17] MEDS: NICOTINE 21MG/24HR PATCH 21 MG TD ×2 (21:34)
[2024-01-18] VITALS: BP 112/77; PULSE 71; PULSE 80; RESP 16; TEMP 36.7; O2SAT 98
--- NOTE | 2024-01-18 | CA_ITS ---
FINAL REPORT CLINICAL HISTORY: heart cath with right wrist access 01/16/24, edema noted in right wrist. COMPARISON: None FINDINGS: Limited imaging of the right wrist to the area of interest reveals patent radial artery with no evidence of pseudoaneurysm. Velocities and waveforms were not provided. IMPRESSION: No evidence of pseudoaneurysm on this limited exam. Reviewed, Interpreted and Dictated by Tanya Price MD Transcribed by Aline Rodriguez Authenticated and [facility]
[2024-01-18] MEDS: ACETAMINOPHEN 325MG TAB 650 MG PO (01:52)
[2024-01-18 04:00] VITALS: BP 145/74; PULSE 60; PULSE 68; RESP 16; TEMP 36.5; O2SAT 99; BMI 24.6
[2024-01-18 07:35] LABS: Chloride 105 mmol/L (98-107); Potassium 3.7 mmoL/L (3.5-5.1); Sodium 140 mmol/L (136-145)
[2024-01-18 07:38] LABS: Anion Gap 5.7 mEq/L (5-15); Blood Urea Nitrogen 9 mg/dl (9-20); Calcium 9.2 mg/dl (8.4-10.2); Carbon Dioxide 33 mmol/L (22.0-30.0); Creatinine Clearance Estimated 98 mL/min (50-200); Estimated Glomerular Filt Rate 89 ml/min (>60); GFR (African American) 108 ML/MIN (>60); Glucose 71 mg/dl (74-100)
[2024-01-18 07:50] LABS: Basophils % 0.4 % (0.1-2.0); Eosinophils # 0.2 K/mm3 (0.0-0.4); Eosinophils % 2.2 % (0.1-12.0); Hematocrit 50.3 % (42.0-52.0); Hemoglobin 16.3 g/dL (14.1-18.0); Lymphocytes # 3.2 K/mm3 (0.7-4.5); Lymphocytes % 31.9 % (10-50); Mean Corpuscular HGB Conc 32.5 g/dL (31.8-35.4); Mean Corpuscular Volume 95.5 fl (80-94); Mean Platelet Volume 7.8 fl (7.4-10.4); Monocytes # 0.6 K/mm3 (0.1-1.0); Monocytes % 5.7 % (1.7-9.3); Neutrophils # 6.1 K/mm3 (1.8-7.8); Neutrophils % 59.9 % (37.0-80.0); Platelet Count 275 K/mm3 (142-424); Red Blood Count 5.27 M/mm3 (4.60-6.20); Red Cell Distribution Width 13.6 % (11.5-17.5); White Blood Count 10.1 K/mm3 (4.8-10.8)
[2024-01-18 08:00] VITALS: BP 141/80; PULSE 59; PULSE 65; RESP 21; TEMP 36.7; O2SAT 99
[2024-01-18] MEDS: ASPIRIN EC 81MG TABLET 81 MG PO (09:53)
[2024-01-18] MEDS: LISINOPRIL 5MG TABLET 5 MG PO (09:53)
[2024-01-18] MEDS: TICAGRELOR 90MG TABLET 90 MG PO (09:54)
[2024-01-18] MEDS: NICOTINE 21MG/24HR PATCH 21 MG TD (09:54)
--- NOTE | 2024-01-18 10:31 | EXP.CARD.PN ---
Subjective Subjective Date: 01/18/24 Time: 10:31 Principal diagnosis: STEMI Interval history: 53-year-old white male in bed in no acute distress. Still complains of right radial discomfort right forearm discomfort as well post cath. Preliminary echocardiogram shows preserved ejection fraction. Exam Data for Last 24 hours Vital signs and Labs for Last 24 Hours: Temp Pulse Resp BP Pulse Ox O2 Del Method 98.0 F 65 21 141/80 H 99 Room Air 01/18/24 08:00 01/18/24 08:00 01/18/24 08:00 01/18/24 08:00 01/18/24 08:00 01/18/24 08:00 Laboratory Results - last 24 hr 01/18/24 07:18: WBC 10.1, RBC 5.27, Hgb 16.3, Hct 50.3, MCV 95.5 H, MCH 31.0, MCHC 32.5, RDW 13.6, Plt Count 275, MPV 7.8, Neut % (Auto) 59.9, Lymph % (Auto) 31.9, [place] % (Auto) 5.7, Eos % (Auto) 2.2, Baso % (Auto) 0.4, Neut # (Auto) 6.1, Lymph # (Auto) 3.2, [place] # (Auto) 0.6, Eos # (Auto) 0.2, Baso # (Auto) 0.0, Sodium 140, Potassium 3.7, Chloride 105, Carbon Dioxide 33 H, Anion Gap 5.7, BUN 9, Creatinine 0.90, Estimated Creat Clear 98, Estimated GFR 89, Est GFR ( Amer) 108, Glucose 71 L, Calcium 9.2 I & O for Last 24 hours: Intake & Output 01/15/24 01/16/24 01/17/24 01/18/24 11:59 11:59 11:59 11:59 Intake Total 390 / 390 1280 / 1280 Output Total 0 / 0 0 / 0 Balance 390 / 390 1280 / 1280 Weight 152 lb 1 oz 157 lb 1.6 oz Constitutional Constitutional: no acute distress *Routine Respiratory Exam Respiratory: Present CTA bilaterally *Routine Cardiovascular Exam Cardiovascular: Present RRR *Routine Extremities Exam Extremities: Absent edema Comments: Slight swelling in the right radial/forearm area with no definite pulsatile mass noted. Patient able to move all extremities and still has sensation of touch intact Progress Note: A&P Assessment and plan (1) Chest pain: Status: Acute (2) ST elevation myocardial infarction (STEMI): Status: Acute (3) S/P coronary artery stent placement: Status: Acute (4) CAD (coronary artery disease): Status: Acute (5) Heavy smoker: Status: Acute Assessment and Plan Assessment and Plan for All Diagnoses:: 1. STEMI -TOSHIA to circumflex, 01/16/2024 -Moderate LAD and RCA disease relegated to medical therapy -GDMT started with MARLENE and beta-[place] along with statin therapy and DAPT (aspirin/Brilinta) -Echo shows preserved EF -No arrhythmias noted on telemetry 2. Tobacco use -Nicotine patch with recommendation for smoking cessation 3. Dyslipidemia with LDL 120 and HDL 30 -Start statin therapy with Lipitor or Crestor -LDL goal less than 55 -LDL 128 on 01/17/2024 with HDL of 30 4. Family history of coronary artery disease in his father 5. Low vitamin D level at 17.5. -Start vitamin D supplementation Preliminary ultrasound on the right forearm/right radial artery shows no evidence of pseudoaneurysm. Home medication recommendations: Aspirin 81 mg daily Brilinta 90 mg twice daily Lipitor 40 mg daily Lisinopril 5 mg daily Vitamin D supplementation Nicotine patch Pantoprazole 40 mg daily Follow-up in our office in 1 week.
--- NOTE | 2024-01-18 11:44 | EXP.DC.SUM ---
General Admission date:: 01/16/24 Discharge date: 01/18/24 HPI HPI HPI: This is a 53-year-old male with apparently no past medical history, no PCP, heavy smoker 1-1/2 pack a day who presented to ED for evaluation of chest pain. Patient was hiking earlier today, less than 1 mile. He has since developed a deep severe left-sided chest pain that is radiating through to his back with sweating. STEMI alert was called. patient emergent taken to quality assurance lab technician. Patient seen and evaluated after procedure. Tolerated well no acute complications. No other acute complaints at this time. Admitted for management. Hospital Course Hospital Course Hospital Course: Patient was seen and evaluated at the bedside on the day of discharge. Patient wishes to be discharged. All patient questions were answered and patient was given time to ask questions. Patient was discharged in stable condition. Patient understands that she can return to ER in case of any sudden changes in health. Total time spent on DC - 38 mins 53-year-old male with apparently no past medical history, no PCP, heavy smoker 1-1/2 pack a day who presented to ED for evaluation of chest pain. Patient was hiking earlier today, less than 1 mile. He has since developed a deep severe left-sided chest pain that is radiating through to his back with sweating. EKG showed ST elevation. STEMI alert was called. taken to [facility]. Successful stent to the mid circumflex artery critical disease reduced to 0% with 1 drug-eluting stent. See report for more details. Case discussed with ED and cardiology. Admitted post procedure. Doing well overnight. No events on telemetry. Continues to require monitoring. Plan as follows: -Chest pain secondary to STEMI due to complete occlusion to the mid circumflex artery S/p stent placement. mild CAD of other [place] coronary artery: Home medication recommendations: Aspirin 81 mg daily Brilinta 90 mg twice daily Lipitor 40 mg daily Lisinopril 5 mg daily Vitamin D supplementation Nicotine patch Pantoprazole 40 mg daily Cardiology ok to DC , and follow up in office in 1 week Hyperlipidemia: Goal LDL less than 55, Lipitor 40 mg nightly. Exam Data for Last 24 hours Vital signs and Labs for Last 24 Hours: Temp Pulse Resp BP Pulse Ox O2 Del Method 98.0 F 65 21 141/80 H 99 Room Air 01/18/24 08:00 01/18/24 08:00 01/18/24 08:00 01/18/24 08:00 01/18/24 08:00 01/18/24 08:00 Laboratory Results - last 24 hr 01/18/24 07:18: WBC 10.1, RBC 5.27, Hgb 16.3, Hct 50.3, MCV 95.5 H, MCH 31.0, MCHC 32.5, RDW 13.6, Plt Count 275, MPV 7.8, Neut % (Auto) 59.9, Lymph % (Auto) 31.9, [place] % (Auto) 5.7, Eos % (Auto) 2.2, Baso % (Auto) 0.4, Neut # (Auto) 6.1, Lymph # (Auto) 3.2, [place] # (Auto) 0.6, Eos # (Auto) 0.2, Baso # (Auto) 0.0, Sodium 140, Potassium 3.7, Chloride 105, Carbon Dioxide 33 H, Anion Gap 5.7, BUN 9, Creatinine 0.90, Estimated Creat Clear 98, Estimated GFR 89, Est GFR ( Amer) 108, Glucose 71 L, Calcium 9.2 I & O for Last 24 hours: Intake & Output 01/15/24 01/16/24 01/17/24 01/18/24 23:59 23:59 23:59 23:59 Intake Total 810 / 1190 860 / 860 Output Total 0 / 0 0 / 0 Balance 810 / 1190 860 / 860 Weight 66.678 kg 68.974 kg 71.259 kg Constitutional Constitutional: no acute distress *Routine HEENT Exam Head: Present normocephalic Eye: Present EOMI and PERRL ENT: Present mucous membranes moist *Routine Neck Exam Neck: Present supple; Absent lymphadenopathy *Routine Respiratory Exam Respiratory: Present CTA bilaterally *Routine Cardiovascular Exam Cardiovascular: Present RRR *Routine Abdominal Exam Abdominal: Present soft and normoactive bowel sounds; Absent tenderness *Routine Extremities Exam Extremities: Absent cyanosis, clubbing or edema *Routine Skin Exam Skin: Present warm; Absent rash *Routine Neurological Exam Neurological: Present alert and oriented X3 Results Data Completed and Pending Labs on day of discharge: Labs from last 24 hours 01/18/24 07:18 WBC 10.1 RBC 5.27 Hgb 16.3 Hct 50.3 MCV 95.5 H MCH 31.0 MCHC 32.5 RDW 13.6 Plt Count 275 MPV 7.8 Neut % (Auto) 59.9 Lymph % (Auto) 31.9 [place] % (Auto) 5.7 Eos % (Auto) 2.2 Baso % (Auto) 0.4 Neut # (Auto) 6.1 Lymph # (Auto) 3.2 [place] # (Auto) 0.6 Eos # (Auto) 0.2 Baso # (Auto) 0.0 Sodium 140 Potassium 3.7 Chloride 105 Carbon Dioxide 33 H Anion Gap 5.7 BUN 9 Creatinine 0.90 Estimated Creat Clear 98 Estimated GFR 89 Est GFR ( Amer) 108 Glucose 71 L Calcium 9.2 DS: Diagnosis Discharge Diagnosis (1) Chest pain: Status: Acute Code(s): R07.9 - Chest pain, unspecified Qualifiers: Chest pain type: chest pain due to myocardial ischemia Ischemic chest pain type: unspecified angina pectoris type Qualified Code(s): I25.9 - Chronic ischemic heart disease, unspecified (2) ST elevation myocardial infarction (STEMI): Status: Acute Code(s): I21.3 - ST elevation (STEMI) myocardial infarction of unspecified site Qualifiers: Involved coronary artery: left circumflex coronary artery Qualified Code(s): I21.21 - ST elevation (STEMI) myocardial infarction involving left circumflex coronary artery (3) S/P coronary artery stent placement: Status: Acute Code(s): Z95.5 - Presence of coronary angioplasty implant and graft (4) CAD (coronary artery disease): Status: Acute Code(s): I25.10 - Atherosclerotic heart disease of [place] coronary artery without angina pectoris Qualifiers: Coronary Disease-Associated Artery/Lesion type: [place] artery [place] vs. transplanted heart: [place] heart Associated angina: unspecified whether angina present Qualified Code(s): I25.10 - Atherosclerotic heart disease of [place] coronary artery without angina pectoris (5) Heavy smoker: Status: Acute Code(s): F17.200 - Nicotine dependence, unspecified, uncomplicated Meds Home Medications and Allergies Home Medications Medication Instructions Recorded Confirmed Type aspirin 81 mg tablet,delayed 81 mg PO DAILY 30 days #30 tabs 01/18/24 Rx release atorvastatin 40 mg tablet 40 mg PO HS 30 days #30 tabs 02/27/24 Rx cholecalciferol (vitamin D3) 1,250 1,250 mcg PO WEEKLY 6 weeks #6 caps 01/18/24 Rx mcg (50,000 unit) capsule lisinopril 5 mg tablet 5 mg PO DAILY 30 days #30 tabs 01/18/24 Rx nicotine 21 mg/24 hr daily 21 mg transdermal DAILY 30 days 01/18/24 Rx transdermal patch #30 ea pantoprazole 40 mg tablet,delayed 40 mg PO DAILY #30 tabs 01/18/24 Rx release (Protonix) ticagrelor 90 mg tablet (Brilinta) 90 mg PO BID 30 days #60 tabs 01/18/24 Rx New Prescriptions to Start Prescriptions: aspirin Geoffrey,Irfan atorvastatin Geoffrey,Irfan cholecalciferol (vitamin D3) Geoffrey,Irfan lisinopril Geoffrey,Irfan nicotine Geoffrey,Irfan [facility]op[facility]Brilinta[facility] Geoffrey,Irfan Allergies Allergy/AdvReac Type Severity Reaction Status Date / Time No Known Allergies Allergy Verified 01/16/24 21:16 Discharge Plan Disposition Patient Disposition: Home, Self-Care Discharge Order Discharge Orders: Discharge Order (Routine); Ordered 01/18/24 Ordered By: Sarai Hale Follow up Plan Follow up with: Kirby Freitas MD [Staff Physician] - 01/27/24 10:30 am Prescriptions/Medication Reconciliation: New atorvastatin 40 mg Tablet 40 mg PO HS 30 Days Qty: 30 0RF aspirin 81 mg Tablet,Delayed Release (Dr/Ec) 81 mg PO DAILY 30 Days Qty: 30 0RF nicotine 21 mg/24 hr Patch 24 Hour 21 mg transdermal DAILY 30 Days Qty: 30 0RF lisinopril 5 mg Tablet 5 mg PO DAILY 30 Days Qty: 30 0RF Brilinta 90 mg Tablet 90 mg PO BID 30 Days Qty: 60 0RF pantoprazole [Protonix] 40 mg tablet,delayed release (DR/EC) 40 mg PO DAILY Qty: 30 0RF cholecalciferol (vitamin D3) 1,250 mcg (50,000 unit) capsule 1,250 mcg PO WEEKLY 42 Days Qty: 6 0RF Problem Reconciliation Problems Reviewed?: Yes Patient Discharge Instructions ACTIVITY: Ambulate as tolerated DIET: continue same diet Patient Instructions: DI for Heart Attack, DI for Cardiac Catheterization, DI for Coronary Stenting, DI for Surgical Site Infection, Smoking Resource: your quit plan Providers Primary Care Provider: Provider,Referral Admit Provider: Nikolas Delgado Attending Provider: Nikolas Delgado
[2024-01-18 12:00] VITALS: BP 150/100; PULSE 61; PULSE 74; RESP 23; TEMP 36.4; O2SAT 100
--- NOTE | 2024-01-19 15:31 | CARE MANAGER ---
Called and spoke with patient regarding recent discharge. He was aware of f/u appts and was able to start all new medication prescribed at discharge. No concerns voiced at time of call.
== END 2024-01-18 14:06 | disposition home or self-care (01) | DRG 322 ==
LOC: ER 22:28 → CATHLAB 22:32 → 2ND 22:52
PROVIDERS: Internal Medicine; Nurse Practitioner Family; Admitting Provider Internal Medicine Adolescent Medicine; Emergency Provider Emergency Medicine; Visit Provider Internal Medicine Adolescent Medicine
PROC: 027034Z Dilation of Coronary Artery, One Artery with Drug-eluting Intraluminal Device, Percutaneous Approach (ICD-10-PCS; principal; 2024-01-16 22:25)
DX: I21.21 ST elevation (STEMI) myocardial infarction involving left circumflex coronary artery (principal); F17.210 Nicotine dependence, cigarettes, uncomplicated; Z95.5 Presence of coronary angioplasty implant and graft; I25.10 Atherosclerotic heart disease of native coronary artery without angina pectoris; I25.82 Chronic total occlusion of coronary artery; E78.2 Mixed hyperlipidemia
CPT/HCPCS: 36415; 71045; 80048; 80053; 80061; 82306; 83036; 83735; 84484; 85025; 85347; 92928; 93005; 93306; 93458; 93931; 99152; 99291; C1725; C1760; C1769; C1876; C9600; J1644; J2405; Q9967

== ENCOUNTER 2024-05-03 15:37 | Outpatient (CLI) | payer MEDICAID, SELFPAY ==
--- NOTE | 2024-05-03 15:40 | XR_ITS ---
FINAL REPORT CLINICAL HISTORY: neck pain x2 weeks, radiates down right arm COMPARISON: None FINDINGS: Three views of the cervical spine were obtained. There is no fracture present. There is no malalignment. There are mild and moderate degenerative changes with multilevel osteophytes. IMPRESSION: Degenerative changes without acute process. Reviewed, Interpreted and Dictated by Marc Chau III, MD Transcribed by Aline Rodriguez Authenticated and [facility]
== END 2024-05-03 23:59 | disposition home or self-care (01) ==
LOC: RAD 15:38
PROVIDERS: PCP Family Medicine; Visit Provider Family Medicine
DX: M54.2 Cervicalgia (principal)
CPT/HCPCS: 72040

== ENCOUNTER 2024-06-12 10:55 | Outpatient (CLI) | payer MEDICAID, SELFPAY ==
[2024-06-12 11:18] LABS: Basophils # 0.1 K/mm3 (0-0.2); Basophils % 0.5 % (0.1-2.0); Eosinophils # 0.2 K/mm3 (0.0-0.4); Eosinophils % 1.3 % (0.1-12.0); Hematocrit 46.1 % (42.0-52.0); Lymphocytes # 2.3 K/mm3 (0.7-4.5); Lymphocytes % 18.1 % (10-50); Mean Corpuscular HGB Conc 32.6 g/dL (31.8-35.4); Mean Corpuscular Hemoglobin 31.7 pg (27.0-31.2); Mean Corpuscular Volume 97.3 fl (80-94); Mean Platelet Volume 7.9 fl (7.4-10.4); Monocytes # 0.4 K/mm3 (0.1-1.0); Monocytes % 3.3 % (1.7-9.3); Neutrophils # 9.6 K/mm3 (1.8-7.8); Neutrophils % 76.8 % (37.0-80.0); Platelet Count 265 K/mm3 (142-424); Red Blood Count 4.73 M/mm3 (4.60-6.20); Red Cell Distribution Width 14.3 % (11.5-17.5); White Blood Count 12.5 K/mm3 (4.8-10.8)
[2024-06-12 12:10] LABS: Chloride 110 mmol/L (98-107); Sodium 141 mmol/L (136-145)
[2024-06-12 12:11] LABS: Potassium 3.8 mmoL/L (3.5-5.1)
[2024-06-12 12:13] LABS: Alanine Aminotransferase 35 U/L (12-78); Albumin Level 3.8 g/dl (3.5-5.0); Alkaline Phosphatase 79 U/L (38-126); Anion Gap 6.8 mEq/L (5-15); Aspartate Amino Transferase 31 U/L (17-59); Bilirubin,Indirect 0.3 mg/dL (0.0-0.9); Bilirubin,Total 0.3 mg/dl (0.2-1.3); Bilirubin,Unconjugated 0.3 mg/dL (0.0-1.1); Blood Urea Nitrogen 5 mg/dl (9-20); Calcium 9.2 mg/dl (8.4-10.2); Carbon Dioxide 28 mmol/L (22.0-30.0); Chol/HDL Ratio 4.3 (1-3.5); Cholesterol 145 mg/dl (140-200); Estimated Glomerular Filt Rate 89 ml/min (>60); GFR (African American) 107 ML/MIN (>60); Glucose 78 mg/dl (74-100); HDL Cholesterol 34 mg/dl (40-60); Total Protein,Serum 6.4 g/dl (6.3-8.2); Triglycerides 192 mg/dl (30-150); VLDL Cholesterol 38 mg/dL (0-40)
[2024-06-12 12:24] LABS: Direct LDL Cholesterol 74.48 mg/dL (100-129)
[2024-06-12 12:26] LABS: Troponin I < 0.01 ng/ml (0.00-0.034)
[2024-06-12 12:33] LABS: Free T4 (Free Thyroxine) 0.99 ng/dl (0.78-2.19)
[2024-06-12 12:44] LABS: Thyroid Stimulating Hormone 1.16 uIU/mL (0.465-4.68)
== END 2024-06-12 23:59 | disposition home or self-care (01) ==
LOC: LAB 10:59
PROVIDERS: PCP Nurse Practitioner Family; Visit Provider Physician Assistant
DX: R07.89 Other chest pain (principal); E78.2 Mixed hyperlipidemia; I25.10 Atherosclerotic heart disease of native coronary artery without angina pectoris; F17.200 Nicotine dependence, unspecified, uncomplicated; Z95.5 Presence of coronary angioplasty implant and graft; I21.21 ST elevation (STEMI) myocardial infarction involving left circumflex coronary artery; I11.9 Hypertensive heart disease without heart failure; R06.00 Dyspnea, unspecified; K21.9 Gastro-esophageal reflux disease without esophagitis
CPT/HCPCS: 36415; 80048; 80061; 80076; 84439; 84443; 84484; 85025

== ENCOUNTER 2024-06-14 06:59 | Outpatient (CLI) | payer MEDICAID, SELFPAY ==
--- NOTE | 2024-06-14 | CA_ITS ---
APPROVED REPORT Exam: Exercise Treadmill Technologist: Ana Mills, Ht: 5 ft 7 in Wt: 151 lbs BSA: 1.79 m2 HR: 80 bpm BP: 128/81 mmHg Rhythm: SINUS ARRHYTHMIA, LPFB, INFERIOR AND LATERAL T WAVE ABNS Medical History Medical History: Hyperlipidemia, Smoking Medications: Lisinopril,,,,, Aspirin,,,,, Pantoprazole,,,,, Atorvastatin,,,,, Vit D3,,,,, CloPIdogrel,,,,, Nitroglycerin,,,,, Allergies: No known drug allergies Cardiac Risk Factors: Hyperlipidemia, FHX of CAD, Smoking Stress Test Details Test: Lupe HR Resting HR: 77 bpm Max Heart Rate (APMHR): 168 bpm Max HR Achieved: 152 bpm Target HR (85% APMHR): 143 bpm % of APMHR: 90 Recovery HR: 93 bpm BP Resting BP: 128/81 mmHg Max BP: 182/79 mmHg Recovery BP: 150.0/82.0 mmHg ECG Resting ECG: SINUS ARRHYTHMIA, LPFB, INFERIOR AND LATERAL T WAVE ABNS Stress EC.[address] DEPRESSION Arrhythmia: NONE Clinical Exercise duration: 12:46 min Highest Stage Achieved: Exercise capacity: 12.8 METs Stress ECG Conclusion PT EXERCISED 12:46 ON LUPE PROTOCOL MAX HR: 149 % OF PM: 89% MAX BP: 182/79 METS: 12.8 TEST STOPPED DUE TO: SOA, LEG FATIGUE NO CP MILD EXAGGERATION OF BASELINE ABNS IN INFERIOR LEADS NON DIAGNOSTIC GXT DUE TO BASELINE EKG ABNS MYOVIEW IMAGES REPORTED SEPARATELY Test Summary REST . . . . . . . Standing REST . . . . . . . Sitting REST 04:21 0.0 0.0 77 . 128/ 81 . . Stage 1 01:00 10.0 1.7 88 . . . . Stage 1 02:00 10.0 1.7 88 . . . . Stage 1 03:00 10.0 1.7 94 . 144/ 70 . . Stage 2 01:00 12.0 2.5 92 . . . . Stage 2 02:00 12.0 2.5 99 . . . . Stage 2 03:00 12.0 2.5 109 . 156/ 70 . . Stage 3 01:00 14.0 3.4 112 . . . . Stage 3 02:00 14.0 3.4 115 . . . . Stage 3 03:00 14.0 3.4 122 . 174/ 70 . . Stage 4 01:00 16.0 4.2 127 . . . . Stage 4 02:00 16.0 4.2 135 . . . . Stage 4 03:00 16.0 4.2 142 . . . . Stage 5 00:46 18.0 5.0 149 . . . Stop exercise at 12:46 RECOVERY 01:00 0.0 0.0 128 . . . . RECOVERY 02:00 0.0 0.0 108 . . . . RECOVERY 03:00 0.0 0.0 94 . 182/ 79 . . RECOVERY 04:00 0.0 0.0 100 . 144/ 82 . . RECOVERY 05:00 0.0 0.0 93 . 162/ 77 . . RECOVERY 05:55 0.0 0.0 91 . 150/ 82 . . Electronically signed by : Andie Patricio MD 06/14/2024 13:46:22
[2024-06-14] MEDS: SODIUM CHLORIDE 0.9% 10ML SYR (RAD ONLY) 10 ML IV ×2 (07:10→09:00)
--- NOTE | 2024-06-14 07:39 | NM_ITS ---
APPROVED REPORT Exam: Nuclear Stress Test Indication: CAD, HTN, HYPERLIPIDEMIA, TOB USE, FM HX, C.P., SOB Patient Location: Outpatient Stress Tech: Ana Mills [place] Tech:Genny Rosales UMADani RT (R)(N)(M) Ht: 5 ft 7 in Wt: 150 lbs HR: 77 bpm BP: 128/81 mmHg BSA: 1.79 m2 TID: 0.97 BMI: 23.4 History: CAD, HTN, HYPERLIPIDEMIA, TOB USE, FM HX, C.P., SOB Procedure: Patient exercised on Jakob protocol 12:45 minutes and sec, resting heart rate 77 bpm, resting blood pressure 128/81 mmHg, with exercise maximum heart rate achived was 152 bpm which is 90 % of the maximum predicted heart rate and blood pressure was 182/79 mmHg. Test was stopped due to LEG CRAMPS. Patient denied any complaint of chest pain. Patient has exercise capacity, achieved 12.8 METs of workload on treadmill, the blood pressure response to exercise was . Cardiac Stress and Resting SPECT Images: Cardiac Stress and Resting SPECT images were obtained using technetium 99m Myoview 30.3 mCi stress and 10.63 mCi at rest. Resting and stress imaging in supine and prone positions demonstrate no evidence of fixed or reversible perfusion defects. Gated imaging demonstrates normal global and regional LV systolic function. LVEF estimated at 64%. Conclusion: No evidence of fixed or reversible perfusion defects. Gated imaging demonstrates normal global and regional LV systolic function. LVEF estimated at 64%. Electronically signed by : Andie Patricio MD 06/14/2024 13:47:28
[2024-06-14] MEDS: ISOTOPE MYOVIEW (PER STUDY) 1 DOSE IV (09:55)
== END 2024-06-14 23:59 | disposition home or self-care (01) ==
LOC: RAD 07:00
PROVIDERS: PCP Family Medicine; Visit Provider Nurse Practitioner
DX: R07.89 Other chest pain (principal); I25.10 Atherosclerotic heart disease of native coronary artery without angina pectoris; I21.21 ST elevation (STEMI) myocardial infarction involving left circumflex coronary artery; Z95.5 Presence of coronary angioplasty implant and graft; F17.210 Nicotine dependence, cigarettes, uncomplicated
CPT/HCPCS: 78452; 93017; 93018; A9502

== ENCOUNTER 2024-08-23 13:05 | Outpatient (CLI) | payer MEDICAID, SELFPAY ==
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
== END 2024-08-23 23:59 | disposition home or self-care (01) ==
LOC: RT 13:07
PROVIDERS: PCP Family Medicine; Visit Provider Family Medicine
DX: M25.472 Effusion, left ankle (principal)
CPT/HCPCS: 93971

== ENCOUNTER 2024-08-29 19:27 | Emergency (ER) | payer MEDICAID, SELFPAY ==
[2024-08-29 19:28] VITALS: BP 144/76; PULSE 80; RESP 19; TEMP 36.9; O2SAT 98; BMI 23.5
--- NOTE | 2024-08-29 19:29 | ED_ITS ---
<Statement entered by Jing Lawson DO - 08/29/24 22:47> I was consulted by the JUNIOR, and we discussed the complexity of the problems being addressed. I approved the treatment and management plan for this patient's care in the emergency department, thus performing a substantive portion of the medical decision making. Jing Lawson DO Discharge Plan Disposition Patient Disposition: Home, Self-Care Condition: Good Prescriptions Prescriptions: No Action aspirin 81 mg tablet,delayed release (DR/EC) 81 mg PO DAILY Qty: 90 3RF atorvastatin 40 mg tablet 40 mg PO HS Qty: 90 3RF lisinopril 5 mg tablet 5 mg PO DAILY Qty: 90 3RF pantoprazole [Protonix] 40 mg tablet,delayed release (DR/EC) 40 mg PO DAILY Qty: 90 3RF clopidogrel [Plavix] 75 mg tablet 75 mg PO DAILY Qty: 90 3RF nitroglycerin 0.4 mg tablet, sublingual 0.4 mg sublingual Q5M PRN (Reason: chest pain) Qty: 25 0RF Rx Instructions: do not exceed 3 doses per episode cholecalciferol (vitamin D3) 1,250 mcg (50,000 unit) capsule 1,250 mcg PO WEEKLY 90 Days Qty: 13 1RF Eliquis 5 mg tablet 5 mg PO BID Qty: 20 0RF Referrals Follow up/Referrals: Richard Costa MD [Primary Care Provider] - See instructions Activity Restrictions/Add. Instructions Additional Instructions/Restrictions: Has ice and compression as needed for symptoms. If your symptoms worsen or do not improve follow-up with your PCP return to ER as needed Clinical Impressions Clinical Impression: Hematoma of right hand Print Language Print Language: Macedonian Discharge ED Provider: Jing Lawson General Adult HPI General Chief complaint: Extremity Injury, Upper Stated complaint: AO10/ RT hand inj Time Seen by Provider: 08/29/24 19:29 History of Present Illness HPI narrative: Patient presents for evaluation of right hand injury. Patient was hammering a piece of wood missed striking the dorsum of his right hand with a hammer on the lateral aspect. Patient is on aspirin Plavix and recently Eliquis for lower extremity DVT below the knee. This happened around 11 AM today and he has noticed increasing swelling and pain hence he presented for evaluation. Patient has no loss of range of motion motor or sensory but is very painful. Related Data Previous Rx's ?Medication ?Instructions ?Recorded aspirin 81 mg tablet,delayed 81 mg PO DAILY #90 tabs 01/27/24 release atorvastatin 40 mg tablet 40 mg PO HS #90 tabs 01/27/24 clopidogrel 75 mg tablet (Plavix) 75 mg PO DAILY #90 tabs 01/27/24 lisinopril 5 mg tablet 5 mg PO DAILY #90 tabs 01/27/24 nitroglycerin 0.4 mg sublingual 0.4 mg sublingual Q5M PRN chest 01/27/24 tablet pain #25 tabs pantoprazole 40 mg tablet,delayed 40 mg PO DAILY #90 tabs 01/27/24 release (Protonix) apixaban 5 mg tablet (Eliquis) 5 mg PO BID #20 tabs 08/23/24 cholecalciferol (vitamin D3) 1,250 1,250 mcg PO WEEKLY 90 days #13 08/23/24 mcg (50,000 unit) capsule caps Allergies Allergy/AdvReac Type Severity Reaction Status Date / Time No Known Allergies Allergy Verified 08/23/24 10:58 [facility] Disclaimer: The information contained in this section may have been updated after the patient was seen, as this information can be updated by other users. Medical History History of left heart catheterization GERD (gastroesophageal reflux disease) Chest pain Surgical History History of appendectomy Family History Other Family history of diabetes mellitus (DM) Family history of heart disease Family history of liver disease Social History Smoking Status: Current every day smoker tobacco type: cigarettes packs per day: 2 alcohol intake: never substance use type: marijuana current occupational status: other Travel in the last 8 weeks: None Other Medical History Have you received the Flu Vaccine for this season: No Have you received the Pneumonia Vaccine: No ROS Obtained: Yes Systems reviewed as appropriate & no additional complaints except as documented Physical Exam General General appearance: alert and in no apparent distress Respiratory Respiratory exam: Present normal lung sounds bilaterally Cardiovascular Cardiovascular exam: Present regular rate Neurological Exam Neurological exam: Present alert and oriented X3 Medical Decision Making Medical Records Medical records reviewed: Yes I reviewed the patient's medical records. Screening: Per USPSTF and CDC recommendations, given the prevalence of disease in our region, it is our hospital?s policy to screen for HIV and viral Hepatitis for all patients aged 18 and over and those with ongoing risk factors. Dylan Inquiry Pt receiving controlled substance: No Vital Signs: 08/29/24 19:28 08/29/24 21:43 Temperature 98.4 F 98.4 F Temperature Source Oral Oral Pulse Rate 66 Pulse Rate [Right] 80 Respiratory Rate 19 16 Blood Pressure 130/68 Blood Pressure [Right Arm] 144/76 H Blood Pressure Mean [Right Arm] 98 Blood Pressure Source [Right Arm] Automatic Cuff 02 Sat by Pulse Oximetry 98 Oxygen Delivery Method Room Air Room Air Orders (Tests/Meds): ED MEDICATIONS Discontinued Medications Generic Name Dose Route Start Last Admin Trade Name Freq PRN Reason Stop Dose Admin Acetaminophen 1,000 mg 08/29/24 19:36 08/29/24 19:50 Acetaminophen 500mg Tab PO 08/29/24 19:37 1,000 mg ONCE ONE Administration ORDERS Category Date Time Status Hand XR right minimum 3 views [XR hand RT min 3V] Stat Exams 08/29/24 19:36 Completed Medical Decision Narrative: In summary patient is a 54-year-old male who presents to the emergency department for evaluation of right hand injury. Patient is hemodynamically stable upon arrival, afebrile. Physical exam is remarkable for a hematoma with ecchymosis of the right lateral hand primarily over the fourth and fifth metacarpals. No bony deformity noted. He is neurovascular intact distally. Has full but painful range of motion.. Differential diagnosis includes hematoma versus soft tissue injury versus possible fracture etc. Initial workup will be conducted with plain film x-rays. Initial interventions include p.o. Tylenol. Initial workup reviewed by me shows no acute fracture. Upon repeat evaluation reported modest improvement after initial intervention. Given this patient is appropriate for discharge with instructions for RICE and avoidance of ibuprofen/Advil. Critical Care Critical Care Time Critical Care Time: No
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
[2024-08-29] MEDS: ACETAMINOPHEN 500MG TAB 1000 MG PO (19:50)
[2024-08-29 21:43] VITALS: BP 130/68; PULSE 66; RESP 16; TEMP 36.9; O2SAT 98
== END 2024-08-29 21:59 | disposition home or self-care (01) ==
PROVIDERS: Emergency Provider Emergency Medicine; PCP Family Medicine
DX: S60.221A Contusion of right hand, initial encounter (principal); M79.641 Pain in right hand; W22.8XXA Striking against or struck by other objects, initial encounter; Y93.89 Activity, other specified; Y92.9 Unspecified place or not applicable
CPT/HCPCS: 73130; 99283

== ENCOUNTER 2024-12-11 10:49 | Outpatient (CLI) | payer MEDICAID, SELFPAY ==
--- NOTE | 2024-12-11 10:55 | XR_ITS ---
FINAL REPORT CLINICAL HISTORY: low back pain FINDINGS: LUMBAR SPINE: AP and lateral views of the lumbar spine were obtained. There is no prior exam for comparison. There is no acute fracture or malalignment. Vertebral body height is preserved. Mild anterior osteophytes are present at the L1-2 and L2-3 levels. Disc space height is preserved. No acute paraspinal abnormality. IMPRESSION: Mild anterior osteophytes at the L1-2 and L2-3 levels without acute bony abnormality. Reviewed, Interpreted and Dictated by Geovany Lewis MD Transcribed by Candie Dominguez Authenticated and [facility]
== END 2024-12-11 23:59 | disposition home or self-care (01) ==
LOC: RAD 10:50
PROVIDERS: PCP Family Medicine; Visit Provider Family Medicine
DX: M54.50 Low back pain, unspecified (principal)
CPT/HCPCS: 72100

== ENCOUNTER 2024-12-21 09:00 | Outpatient (RCR) | payer MEDICAID, SELFPAY ==
--- NOTE | 2024-12-19 16:59 | HMH.PTOPEV ---
PT Outpatient Evaluation Rehab PT Outpatient Evaluation Start: 12/19/24 16:01 Freq: Status: Active Protocol: Document 12/19/24 16:42 AMAURI (Rec: 12/19/24 16:59 [email or web address] [id number]) E-signed By Addy Edmond, PT Outpatient Therapy Subjective History Subjective History Pt is a 54 yom that is referred to [facility] outpatient Physical Therapy with complaints of LBP that has been ongoing for approximately 3 years. He reports that in the past month it has gotten significantly worse, complaining of pain that takes my breath away. He reports that he had no change in activity and cannot recall a singular event that predates his pain worsening. He reports that he has significant difficulty being in an extended position. Standing, walking, lying on his stomach or coming up from a flexed position all worsen his symptoms. He reports that a flexed posture is more comfortable to him and often relieves his pain. He reports a PMH of a heart attack and a stent. New diagnosis of cancer in past 12 No months? Chief Complaint Pain,Stiff Symptom Type Ache,Shooting Symptoms Relieved By Rest/Positioning Symptoms Aggravated By Prone,Standing,Twisting, Walking,Lifting Prior Functional Limitations None Current Functional Limitations Lifting,Driving,Standing, Squatting,Walking Symptom Description Constant but Variable Level of pain today (0-10) 3 Pain scale - at its best (0-10) 3 Pain scale - at its worst (0-10) 10 Lumbopelvic Eval Posture Thoracic Spine Posture Standing Position Neutral Lumbar Spine Posture Standing Position Decreased Lordosis Assistive device Assistive Devices None / NA Palapation tenderness bilateral lumbar spinal tenderness Yes: 4/4 to L1-L3 spinous process paraspinal tenderness Yes: 2/4 to B paraspinals Accessory Movement L2 bilateral L3 bilateral L4 bilateral Range of Motion Lumbar Spine Active Flexion Range of 60 Motion (degrees) Lumbar Spine Active Extension Range of 5 Motion (degrees) Left Lumbar Spine Lateral Flexion Active 10 Range of Motion (degrees) Right Lumbar Spine Lateral Flexion 20 Active Range of Motion (degrees) Manual Muscle Test Bilateral Knee Extension Strength Grade 5 Normal Knee Flexion Strength Grade 5 Normal Hip Flexion Strength Grade 4- Good- Hip Abduction Strength Grade 4- Good- Hip Extension Strength Grade 4- Good- Extensor Hallucis Longus Strength Grade 5 Normal Ankle Dorsiflexion Strength Grade 5 Normal Gastronemius/Soleus Strength Grade 5 Normal DTR Rt Patellar 1+ Lt Patellar 1+ Rt Gastroc/Soleus 1+ Lt Gastroc/Soleus 1+ Altered Sensation Bilateral LE Dermatome Level T12,L1,L2,L3,L4,L5,S1 Comment INTACT Special Tests Lumbar Spine Screen Positive Forward Bending Test- Standing Negative Left,Negative Right Hip Scouring (Quadrant) Test Negative Left,Negative Right Hip Sj (ABIDA) Test Negative Left,Negative Right Hip Royer Test Negative Left,Negative Right Reverse Sciatic Nerve Tension Test Negative Left,Negative Right Crossed Straight Leg Raise Test Negative Left,Negative Right Juan Jose Test Negative Hip Kirsten's Test Negative Right,Positive Left Sacroiliac Joint Compression Test Negative Left,Negative Right Sacroiliac Joint Distraction Test Negative Left,Negative Right Lumbar Long [place] Distraction Test/Manual Negative Traction Outpatient Therapy Assessment Impairments Problems/Impairmments Palpation Tenderness,Impaired Range of Motion,Impaired Strength,Impaired Standing, Impaired Household Care, Subjective C/O Pain Prognosis Rehab Potential Fair Comment w HEP Compliance Clinical Impression Consistent with Diagnosis Yes Consistent with LBP with mobility deficits Additional details: Pt demonstrates hypomobility of his lumbar spine and palpable tautness of his lumbar paraspinals. Pt also demonstrates a lack of extension with pain and a clear directional preference for lumbar flexion. The pt would benefit from skilled PT with an emphasis on lumbar flexion initially and a gradual increase in lumbar extension exercises in order to address his current impairments, improve quality of life and to return to his PLOF. Short Term Goals Number of Weeks 4 Decreased Palpation Tenderness Yes: 2-3/4 to Lumbar spine Increase Range of Motion Yes: 50-75% AROM of Lumbar spine Increase Strength Yes: 4+/5 to B hips Increase Ability to Stand Yes: 30 minutes without increasing pain Improve Oswestry Score Yes: 33% Decrease Subjective C/O Pain Yes: 5/10 with above activities Patient to be Ind w/ HEP Yes Staff Radiologist Goals Number of Weeks 8 Decreased Palpation Tenderness Yes: 0-1/4 with above activities Increase Range of Motion Yes: 100% Lumbar AROM Increase Strength Yes: 5/5 to B hips Increase Ability to Walk Yes: 30 minutes without increasing pain Increase Ability to Stand Yes: 1 hour without increasing pain Improve Oswestry Score Yes: 22% Decrease Subjective C/O Pain Yes: 2-3/10 with above activities Patient to be Ind w/ Advanced HEP Yes Outpatient Therapy Plan of Care Treatment Plan May Include Therapeutic Exercise Including Home Yes Exercise Program Manual Therapy Techniques Yes Neuromuscular Re-education Yes Therapeutic Activities to Return to Yes Previous Functional/Work Level Gait Training Yes ADL/Self Care Education Yes Mechanical Traction Yes Dry Needling Yes Thermal Modalities Yes Electrical Stimulation Yes Ultrasound/Phonophoresis Yes Iontophoresis Yes Massage Yes Manual Lymphatic Drainage Yes Eval/Re-Eval Yes Frequency Times per week 2 Duration Number of Weeks 8 Addendums This patient is a candidate for social No or vocational rehab? Patient/Guardian verbally acknowledges Yes understanding of treatment program and consents to further treatment? Patient/Guardian verbally acknowledges Yes understanding of diagnosis, prognosis and goals for treatment? Eval Complexity PT Charges 88448 - Moderate Complexity Shoulder/Elbow Eval Shoulder Objective Measurements Elbow Objective Measurements PHYSICIAN CERTIFICATION: I certify the specified therapy services for Urvashi Iverson are required, authorized, and reviewed every 30 days.
== END 2024-12-21 23:59 | disposition home or self-care (01) ==
LOC: PT 09:00
PROVIDERS: Visit Provider Family Medicine
DX: M54.50 Low back pain, unspecified (principal)
CPT/HCPCS: 97110; 97140; 97163

== ENCOUNTER 2025-04-17 09:56 | Outpatient (CLI) | payer MEDICAID, SELFPAY ==
--- NOTE | 2025-04-17 09:59 | XR_ITS ---
FINAL REPORT CLINICAL HISTORY: Left knee pain COMPARISON: None FINDINGS: LEFT KNEE 4 views demonstrate no acute fracture or dislocation. There is mild narrowing of the medial compartment joint space. There is prominent soft tissue edema anterior to the patella measuring 2.5 cm IMPRESSION: Prominent prepatellar soft tissue edema without acute abnormality. Reviewed, Interpreted and Dictated by Geovany Lewis MD Transcribed by Marisel Hinds Authenticated and [facility]
== END 2025-04-17 23:59 | disposition home or self-care (01) ==
LOC: RAD 09:57
PROVIDERS: PCP Family Medicine; Visit Provider Physician Assistant
DX: M25.562 Pain in left knee (principal); R60.0 Localized edema
CPT/HCPCS: 73564